=== PATIENT | male | born 1955 | race Caucasian/White ===

== ENCOUNTER 2018-02-15 05:31 | Day surgery (SDC) | payer OTHER ==
[~2018-02-15] VITALS: Ht 177.8 cm; Wt 86.6 kg
[~2018-02-15 05:31] MED LIST: ASPI-516 CHEW; ATOR40TA16 PO; BUPR150XL PO; CIAL10TA PO; LORA-392 PO; METO25TA3 PO
[2018-02-15] MEDS ORDERED: IOHEXOL 350 MG/ML 100 ML BTL (for Cath Lab) OTHER ONE (05:32)
[2018-02-15] MEDS ORDERED: IOHEXOL 350 MG/ML 50 ML BTL (for Cath Lab) OTHER ONE (05:32)
[2018-02-15] MEDS ORDERED: NS 1000P @30 MLS/HR (KVO) IV SCH (06:00)
[2018-02-15 06:30] VITALS: BP 154/87; PULSE 67; RESP 18; TEMP 98.6; O2SAT 97
[2018-02-15] MEDS ORDERED: ADVI200T17 PO (06:37)
[2018-02-15] MEDS ORDERED: METO25TA3 PO (06:37)
[2018-02-15] MEDS ORDERED: ASPI-183 PO (06:37)
[2018-02-15] MEDS ORDERED: NITR0.4S SL (06:37)
[2018-02-15] MEDS ORDERED: MULTTAB67 PO (06:37)
[2018-02-15] MEDS ORDERED: ISOS30TA3 PO (06:37)
[2018-02-15 06:48] LABS: AUTOMATED NEUTROPHIL # 5.5 TH/MM3 (1.8-7.7); BASOPHIL # 0.1 TH/MM3 (0-0.2); EOSINOPHIL # 0.6 TH/MM3 (0-0.4); EOSINOPHIL % 6.5 % (0.0-4.0); HEMATOCRIT 40.5 % (39.0-51.0); HEMOGLOBIN 14.3 GM/DL (13.0-17.0); LYMPH % 23.4 % (9.0-44.0); MEAN CELL VOLUME 88.1 FL (80.0-100.0); MEAN CORPUSCULAR HEMOGLOBIN 31.1 PG (27.0-34.0); MEAN CORPUSCULAR HGB CONC 35.3 % (32.0-36.0); MEAN PLATELET VOLUME 7.3 FL (7.0-11.0); MONOCYTE # 0.5 TH/MM3 (0-0.9); NEUT % 63.1 % (16.0-70.0); PLATELET COUNT 233 TH/MM3 (150-450); RED CELL DISTRIBUTION WIDTH 13.3 % (11.6-17.2); WHITE BLOOD COUNT 8.7 TH/MM3 (4.0-11.0)
[2018-02-15 07:01] LABS: PROTHROMBIN TIME - PATIENT 10.5 SEC (9.8-11.6)
[2018-02-15 07:06] LABS: CALCIUM 9.6 MG/DL (8.5-10.1); CREATININE 1.35 MG/DL (0.60-1.30)
[2018-02-15] MEDS ORDERED: MIDAZOLAM HCL 2 MG/2 ML VIAL ONE ×2 (07:10→07:49)
[2018-02-15] MEDS ORDERED: HEPARIN-NS/PF INJ 1,000 ML ONE (07:10)
[2018-02-15] MEDS ORDERED: HEPARIN SODIUM - IV 10,000 UNITS/10 ML VIAL ONE (07:10)
[2018-02-15] MEDS ORDERED: METOCLOPRAMIDE HCL 10 MG/2 ML VIAL IV PUSH PRN (08:45)
[2018-02-15] MEDS ORDERED: MISC INFORMATION XX ONE (08:45)
[2018-02-15] MEDS ORDERED: SODIUM CHLORIDE 0.9% FLUSH 10 ML FLUSH IV FLUSH PRN (08:45)
[2018-02-15] MEDS ORDERED: SODIUM CHLORIDE 0.9% FLUSH 10 ML FLUSH IV FLUSH SCH (09:00)
[2018-02-15] MEDS ORDERED: SODIUM CHLOR 0.9% 1000 ML INJ 1,000 ML IV SCH (09:00)
[2018-02-15] MEDS ORDERED: BACITRACIN OINT 0.9 GM PKT TOP ONE (09:00)
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
--- NOTE | 2018-02-15 09:11 | CATHPROC ---
[facility] HIS Report Study Information Study Number Admission Scheduled Start Study Start [id number] Feb 15 2018 5:31AM 02/15/2018 Feb 15 2018 6:53AM [place] Service Cardiac Catheterization Admit Source Facility Department Other [facility] - Remote Sensing Scientist Physician and Clinical Staff Initial Dominic Morelos Nut Picker Narendra Acuña,JACK Recorder Mary Lewis,DISTRIBUTION OPERATIONS SUPERVISOR TECH2 Scrub Elisa Lai ,RT(R) Procedures Performed Procedure Location (Site) Vessel Name Angiogram LV LV Ventricle Coronary Angiograms LCA Left Coronary Coronary Angiograms RCA Right Coronary Coronary Angiograms MORALEZ-LAD Left Coronary Coronary Angiograms SVG-OM 1 CIRC Coronary Angiograms SVG-OM 2 CIRC Coronary Angiograms Gft, RCA Dist Right Coronary Equipment Time Water Sponger Description Size Mfg Part Number Used/Scraped TRANSDUCER, TRUWAVE [id number] 06:54 RAINES VARELA * Used W/STOCKCOCK *[id number] [id number] *[id number] [id number] *[id number] *[id number] PIGTAIL ANG. 145 INFINITI 534-652S CATHETER *[id number] 06:54 [employer] BLANKET,WARM AIR CCL * Used *[id number] 06:54 [employer] PACK, CCL CUSTOM * Used *[id number] 06:54 SinglePlatform PACER PEN, SKIN DUAL W/ RULER * Used *[id number] 06:54 Kauli SHEATH, FR6.5 PRELUDE 11CM FR 6.5 038ACT Used *[id number] 06:54 [employer]uli WIRE, 3MMJ .035 180CM 180CM Used *[id number] 06:54 NAMIC MANIFOLD, 4 PORT * Used *[id number] 06:54 [employer] OMNIPAQUE, 350 MG, 150ML 150ML [id number] Used 07:51 [employer] OMNIPAQUE, 350 MG, 50ML 50ML [id number] Used History: Current Medications Medication Dosage/Unit Route Frequency Last Date/Time Taken Statins (any) ATIVAN CIALIS ASA Imdur LOPRESSOR NTG SL History: Allergies Allergy Reaction No Known Allergies History: Risk Factors Family History of Hypertension Dyslipidemia Previous MD Previous Heart Failure Premature CAD Yes Yes Yes No No Prior Valve Prior PCI Prior CABG Prior CABGDate Surgery No No Yes 03/09/2014 Cerebrovascular Peripheral Artery Chronic Lung On Dialysis Diabetes Disease Disease Disease No No No No No History: Symptoms/Diagnosis Selection Items Chest pain History: CV Disease Selection Items Known CAD History: Stress Tests Stress or Imaging Studies Performed Yes Standard Exercise Stress Test No Stress Echo No Stress Test SPECT Stress Test SPECT Result Stress Test SPECT Ischemia Risk/Extent Yes Positive Intermediate Stress Test CMR No Cardiac CTA Coronary Calcium Score No No History: Other Current Smoker No Labs Hgb (g/dl) Hct (%) WBC (l/cumm) Platelets (thousands) 11.60-17.00 35.00-51.00 4.00-11.00 150.00-450.00 14.3 40.5 8.7 233 Glucose (mg/dl) BUN (mg/dl) Creatinine (mg/dl) BUN:Creatinine (1:x) 74.00-106.00 7.00-18.00 0.50-1.30 10.00-20.00 97 17 1.3 13.1 Na (meq/l) K (meq/l) Cl (meq/l) CO2 (mmol/L) 136.00-145.00 3.50-5.10 98.00-107.00 21.00-32.00 142 3.9 106 25 INR (PTT:PT) 0.90-1.10 1 CPK-MB (ng/ML) 0.50-3.60 Not Drawn Medication Medication Total Dose (Bolus/Oral) Medication Total Dosage/Unit 1% XYLOCAINE 20 mL FENTANYL 50 mcg OXYGEN 2 l/min VERSED 4 mg Medications (Bolus/Oral) Medication Time Given Dosage/Unit Administered By Reason VERSED 02/15/2018 7:46:27 AM 2 mg Narendra Acuña 2 mg VERSED given in lab by Narendra Acuña RN in Left Antecubital via Peripheral IV. Ordered by Dominic Meng. FENTANYL 02/15/2018 7:47:40 AM 50 mcg Narendra Acuña 50 mcg FENTANYL given in lab by Narendra Acuña RN in Left Antecubital via Peripheral IV. Ordered by Dominic Magaña. 1% XYLOCAINE 02/15/2018 7:48:49 AM 20 mL Dominic Gilmore 20 mL 1% XYLOCAINE given in lab by Dominic Gilmore in Right Groin via Subcutaneous. Ordered by Dominic Gilmore. VERSED 02/15/2018 7:59:49 AM 2 mg Narendra Acuña 2 mg VERSED given in lab by Narendra Acuña RN in Left Antecubital via Peripheral IV. Ordered by Dominic Meng. OXYGEN 02/15/2018 8:03:34 AM 2 l/min Narendra Acuña 2 l/min OXYGEN given in lab by Narendra Acuña RN via Nasal. Ordered by Dominic Gilmore. Medication (Drip) Medication Time Given Dosage/Unit Concentration/Unit Diluent (ml) Solution IV Solutions 02/15/2018 7:14:05 AM 0 mL (IV) 500 NaCl .9 Patient arrived on IV Solutions in Left Antecubital via Peripheral IV. Pump/Drip Flow = 20 ml/hr usin g NaCl .9. Initial Case Assessment Cardiovascular HR Rhythm NIBP Chest Pain 66 sr 149/86 0 Circulatory - Right Pulses Dorsalis Pedis Femoral 2 2 Scale (0,1,2,3,4,d) Circulatory - Left Pulses Dorsalis Pedis Femoral 2 2 Scale (0,1,2,3,4,d) Neurological State Oriented to time-place- Alert Moves all extremities person Respiration - General Respiration Rate SpO2 (%) (B/min) 13 99 Chronological Log Time Study Chronological Log 7:08:42 Patient arrived via Bed. 7:08:43 Patient Name, D.O.B, / Armband Verified By R.N. 7:08:44 Consent signed by the physician and the patient and verified by the Remote Sensing Scientist staff. 7:08:45 Pre-op and post- op instructions given; patient acknowledges understanding of instructions. 7:08:45 Verbal Stimulation=2 Physical Stimulation=2 Airway=2 Respiration=2 TOTAL=8. (0=absent, 1=de [place] ited, 2=present) 7:09:18 Patient has been NPO for More than 6Hrs. 7:09:21 Skin Breakdown-none per patient 7:09:22 Edyta Prominences Protected Vitals capture started with the following parameters, Patient=Adult, Interval=5 min, Initial Pre ypndu=051 mmHg, 7:12:03 Deflation Rate=5 mmHg, Cuff placed on Left Arm 7:13:21 HR=95 bpm, WVAJ=706/86 mmhg, SpO2=97.0 %, Resp=10 B/min 7:14:04 A # 20 IV was noted in the Antecubital (left). Grade = patent 7:14:05 Patient arrived on IV Solutions in Left Antecubital via Peripheral IV. Pump/Drip Flow = 20 m l/hr using NaCl .9. 7:14:07 History and physical on the chart or being dictated. Assessment: Initial Case, HR=66 BPM, Rhythm=sr, HGSL=943/86 mmhg, Chest Pain=0 Right Pulses: Rigoberto Ped=2, Femoral=2 7:14:08 Left Pulses: Rigoberto Ped=2, Femoral=2 Neurological: State=Alert, Ox3, GARCIA Respiration: Resp=13 B/min, SpO2=99 % 7:17:48 HR=60 bpm, TEXD=672/84 mmhg, SpO2=96.0 %, Resp=7 B/min 7:18:57 Right groin prepped with 2% chlorhexidine, and draped after a 3 min. waiting time. 7:22:47 HR=63 bpm, FHDA=042/85 mmhg, SpO2=98.0 %, Resp=15 B/min 7:23:36 MD paged 7:25:20 MD responded 7:25:29 Pressure channel 1 zeroed. 7:27:02 Reference ECG taken 7:27:48 HR=62 bpm, PQII=153/78 mmhg, SpO2=98.0 %, Resp=16 B/min 7:32:49 HR=75 bpm, SCKK=077/77 mmhg, SpO2=98.0 %, Resp=11 B/min 7:37:44 HR=59 bpm, YMUR=492/83 mmhg, SpO2=96.0 %, Resp=18 B/min 7:41:55 MD arrived. 7:42:45 HR=64 bpm, WAXL=493/72 mmhg, SpO2=98 %, Resp=13 B/min 7:46:27 2 mg VERSED given in lab by Narendra Acuña, RN in Left Antecubital via Peripheral IV. Ordered by Dominic Gilmore. Time Out. Correct patient, correct procedure, correct physician, labs, allergies, and equipment verified with labeling associate 7:46:41 team present. Fire risk assesment completed (see hard stop sheet for coding). Time Out Concu rred by MD and individual staff in procedure. 7:47:40 50 mcg FENTANYL given in lab by Narendra Acuña, RN in Left Antecubital via Peripheral IV. Ord ered by Dominic Gilmore. 7:47:48 HR=66 bpm, ERXB=789/66 mmhg, SpO2=98.0 %, Resp=12 B/min 7:48:47 Case Start 7:48:49 20 mL 1% XYLOCAINE given in lab by Dominic Gilmore in Right Groin via Subcutaneous. Ordered by Dominic Gilmore. 7:50:33 Access site was Right Femoral Artery. 7:50:40 A SHEATH, FR6.5 PRELUDE 11CM FR 6.5 was advanced into the Fem Art (right) using the Percutan eous technique. A PIGTAIL ANG. 145 INFINITI CATHETER FR 6 was advanced over a wire. OMNIPAQUE, 350 MG, 50ML 50ML was used 7:50:53 for injections. Recorded Pressure: LV, HR=61, Condition=Condition 1 7:52:22 (Left Ventricle) LV 95/1/10 7:52:47 HR=68 bpm, ECBG=133/71 mmhg, SpO2=96.0 %, Resp=9 B/min 7:53:06 The LV was injected at 8 cc/sec for a total of 16. OMNIPAQUE, 350 MG, 50ML 50ML used. Recorded Pressure: LV, Ao, HR=62, Condition=Condition 1 7:53:59 (Left Ventricle) LV 118/-7/12, (Aorta) Ao 117/67/87 7:54:55 Catheter was removed A JL 4.0 INFINITI CATHETER FR 6 was advanced over a wire. OMNIPAQUE, 350 MG, 150ML 150ML was use d for 7:54:57 injections. 7:56:38 The LCA was injected and visualized at various angles. OMNIPAQUE, 350 MG, 150ML 150ML used. A JR 4.0 INFINITI CATHETER FR 6 was advanced over a wire. OMNIPAQUE, 350 MG, 150ML 150ML was use d for 7:57:09 injections. 7:57:44 HR=67 bpm, JAOE=121/76 mmhg, SpO2=96.0 %, Resp=7 B/min 7:59:19 The RCA was injected and visualized at various angles. OMNIPAQUE, 350 MG, 150ML 150ML used. 7:59:33 The SVG-OM 1 was injected and visualized at various angles. OMNIPAQUE, 350 MG, 150ML 150ML u sed. 7:59:49 2 mg VERSED given in lab by Narendra Acuña RN in Left Antecubital via Peripheral IV. Ordered by Dominic Gilmore. 8:01:27 The SVG-OM 2 was injected and visualized at various angles. OMNIPAQUE, 350 MG, 150ML 150ML u sed. 8:02:38 The Gft, RCA Dist was injected and visualized at various angles. OMNIPAQUE, 350 MG, 150ML 15 0ML used. 8:02:45 HR=67 bpm, SNRS=044/65 mmhg, SpO2=92.0 %, Resp=10 B/min 8:03:34 2 l/min OXYGEN given in lab by Narendra Acuña RN via Nasal. Ordered by Dominic Gilmore. 8:04:00 Catheter was removed A POLI INFINITI CATHETER FR 6 was advanced over a wire. OMNIPAQUE, 350 MG, 150ML 150ML was used f or 8:04:01 injections. 8:05:32 The MORALEZ-LAD was injected and visualized at various angles. OMNIPAQUE, 350 MG, 150ML 150ML u sed. 8:07:46 HR=62 bpm, BWBU=131/64 mmhg, JyW0=844.0 %, Resp=11 B/min 8:08:13 Catheter was removed 8:12:47 HR=60 bpm, GANF=916/66 mmhg, SpO2=99.0 %, Resp=9 B/min A JL 4.0 INFINITI CATHETER FR 6 was advanced over a wire. OMNIPAQUE, 350 MG, 150ML 150ML was use d for 8:16:32 injections. 8:17:44 HR=60 bpm, SYBN=712/68 mmhg, ZuY8=726.0 %, Resp=9 B/min 8:18:17 The LCA was injected and visualized at various angles. OMNIPAQUE, 350 MG, 150ML 150ML used. 8:19:11 Catheter was removed 8:20:28 Case End 8:22:49 HR=60 bpm, AKEL=200/65 mmhg, ZiK3=978.0 %, Resp=12 B/min 8:24:19 Sheath removed; pressure applied to access site. 8:27:46 HR=62 bpm, FEYA=228/67 mmhg, SpO2=99.0 %, Resp=12 B/min 8:32:45 HR=63 bpm, UDKU=936/72 mmhg, CoT4=130.0 %, Resp=8 B/min 8:37:46 HR=66 bpm, RMBG=954/81 mmhg, SpO2=99.0 %, Resp=18 B/min 8:42:51 HR=60 bpm, KYML=746/69 mmhg, AhD6=603.0 %, Resp=10 B/min 8:47:46 HR=64 bpm, OFCH=856/73 mmhg, SpO2=96.0 %, Resp=13 B/min 8:52:49 HR=60 bpm, QDYY=529/71 mmhg, SpO2=96.0 %, Resp=11 B/min 8:57:48 HR=64 bpm, PXRG=670/72 mmhg, SpO2=98.0 %, Resp=12 B/min 9:02:50 HR=59 bpm, KVMW=521/66 mmhg, SpO2=98.0 %, Resp=12 B/min 9:06:47 Hemostasis obtained. Sterile dressing applied to site 9:07:56 Patient moved to bed 9:08:16 Patient transported to DOCU. 9:08:48 No case complications noted. 9:08:49 Cine recording checked. 9:08:50 Bedside Report will be given. End Study - Contrast Media Used In Study Contrast Total Opened (mL) Total Used (mL) Total Wasted (mL) Omnipaque 110 110 0 End Study - Maximum Contrast Load Max Contrast Load (mL) 333.0 End Study - Radiation Exposure Fluoro Time (minutes) 5.7 End Study - Sheaths Sheaths Pulled By Sheath Hold Time (min) Elisa Lai 20 End Study - Patient Disposition Complications Transferred To Interventional Outcome No Telemetry Bed No attempt made
--- NOTE | 2018-02-15 16:09 | EKG ---
Date Performed: 02/15/2018 Time Performed: 06:33:00 PTAGE: 62 years EKG: Sinus bradycardia with 1st degree A-V block. Septal T wave changes are nonspecific Since th e previous tracing, no significant change noted Abnormal ECG PREVIOUS TRACING : 03/10/2014 05.37 DOCTOR: Caryn Barrera Interpretating Date/Time 02/15/2018 16:08:55
== END 2018-02-15 15:37 | disposition home or self-care (01) ==
LOC: HDIC 05:31 → HDOC 05:31
PROVIDERS: ATTEND Internal Medicine Cardiovascular Disease
DX: I25.810 Atherosclerosis of coronary artery bypass graft(s) without angina pectoris (principal); I25.119 Atherosclerotic heart disease of native coronary artery with unspecified angina pectoris; I10 Essential (primary) hypertension; E78.5 Hyperlipidemia, unspecified; Z95.1 Presence of aortocoronary bypass graft
CPT/HCPCS: 80048; 85025; 85610; 85730; 93005; 93459; 99152; 99153; C1769; C1893; J1644; J2250; J3010; J7030; Q9967

== ENCOUNTER 2018-02-18 22:47 | Inpatient (IN) | payer OTHER ==
[~2018-02-18] VITALS: Ht 177.8 cm; Wt 87.7 kg
[~2018-02-18 22:47] MED LIST changes: +ADVI200T17 PO; +ASPI-183 PO; -ASPI-516 CHEW; -BUPR150XL PO; +ISOS30TA3 PO; +MULTTAB67 PO; +NITR0.4S SL
[2018-02-18 22:54] VITALS: BP 149/79; PULSE 77; RESP 18; TEMP 97.9; O2SAT 100
[2018-02-18] MEDS ORDERED: CLOP75TA PO (23:06)
[2018-02-18 23:07] VITALS: PULSE 78; RESP 18; O2SAT 100
[2018-02-18] MEDS ORDERED: SODIUM CHLORIDE 0.9% FLUSH 10 ML FLUSH IVF PRN (23:15)
[2018-02-18 23:22] VITALS: BP_SYST 129; BP_SYST 144; BP_DIAS 71; BP_DIAS 79; PULSE 78
[2018-02-18] MEDS ORDERED: FAMOTIDINE 20 MG/2 ML VIAL IV PUSH SCH (23:30)
[2018-02-18] MEDS ORDERED: PANTOPRAZOLE SODIUM 40 MG VIAL IV PUSH ONE (23:30)
[2018-02-18 23:44] LABS: AUTOMATED NEUTROPHIL # 4.6 TH/MM3 (1.8-7.7); BASOPHIL # 0.1 TH/MM3 (0-0.2); BASOPHIL % 1.2 % (0.0-2.0); EOSINOPHIL # 0.3 TH/MM3 (0-0.4); EOSINOPHIL % 4.5 % (0.0-4.0); HEMATOCRIT 40.6 % (39.0-51.0); HEMOGLOBIN 14.3 GM/DL (13.0-17.0); LYMPH % 26.6 % (9.0-44.0); MEAN CELL VOLUME 89.4 FL (80.0-100.0); MEAN CORPUSCULAR HEMOGLOBIN 31.4 PG (27.0-34.0); MEAN CORPUSCULAR HGB CONC 35.1 % (32.0-36.0); MEAN PLATELET VOLUME 7.7 FL (7.0-11.0); MONO % 7.6 % (0.0-8.0); MONOCYTE # 0.6 TH/MM3 (0-0.9); NEUT % 60.1 % (16.0-70.0); PLATELET COUNT 205 TH/MM3 (150-450); RED BLOOD COUNT 4.54 MIL/MM3 (4.50-5.90); RED CELL DISTRIBUTION WIDTH 13.4 % (11.6-17.2); WHITE BLOOD COUNT 7.7 TH/MM3 (4.0-11.0)
[2018-02-18 23:53] LABS: PROTHROMBIN TIME - PATIENT 10.1 SEC (9.8-11.6)
[2018-02-19] VITALS (10 sets, daily range): BP systolic 109–155; BP diastolic 66–77; PULSE 59–72; RESP 16–20; TEMP 96.9–98.3; O2SAT 96–100
--- NOTE | 2018-02-19 00:09 | RADRPT ---
EXAM DATE: 02/18/2018 11:54 PM EDT AGE/SEX: 62 years / Male INDICATIONS: Chest and upper abdominal pain. CLINICAL DATA: This is the patient's initial encounter. Patient reports that signs and symptoms have been present for 1 day and indicates a pain score of 8/10. MEDICAL/SURGICAL HISTORY: Hypertension. CABG. COMPARISON: No prior exams available for comparison. FINDINGS: PA and lateral views of the chest demonstrate the lungs to be symmetrically aerated without evidence of mass, infiltrate or effusion. The cardiomediastinal contours are unremarkable except tortuous aort a. Osseous structures are intact. CONCLUSION: No active disease. Postoperative CABG. Electronically signed by: Jose Cook MD 02/19/2018 12:08 AM EDT
[2018-02-19] MEDS ORDERED: NITROGLYCERIN 2% OINT 1 GM PACKET TOPICAL ONE (00:15)
[2018-02-19] MEDS ORDERED: ASPIRIN 81 MG CHEW TAB CHEW ONE (00:15)
--- NOTE | 2018-02-19 00:20 | PD ---
HPI . Chest pain substernal Chief Complaint: Cardiac Complaint Time Seen by Provider: 22:57 Travel History International Travel<30 days: Yes Contact w/Intl Traveler<30days: Yes Name of Country Traveled to: [place] january 2018 Traveled to known affect area: No History of Present Illness HPI Patient is a 62-year-old male 2 days ago had a diagnostic catheterization by Dr. Dominic Gilmore. Patient report is read by this MD and I see that he has a severe stenosis in his LAD and circumflex and they are planning on doing an angioplasty with stenting of his grafts. 4 years ago he had a CABG triple- vessel disease grafts. Patient reports that 2 days ago the night prior to his catheterization he had substernal chest pain that felt like it was acid stomach took some Tums but it did not much change it went away on its own had his cath 2 days ago then tonight he had substernal chest pain he said it felt like a burning but felt higher up in his normal acid stomach he took some Pepto-Bismol prior to coming to the ER and by the time he is here he says it is resolving. Patient's initial EKG normal sinus rhythm at a rate of 71 however he has a flipped T-wave in V3 that was not there 2 days ago on his EKG prior to the catheterization. Catheterization was only diagnostic there was no angioplasty or stenting so his troponin is pending but it should be normal his pain is resolving we give him Pepcid and Protonix but he reports even prior to her treatment it was resolving on its own. Denies nausea vomiting denies diaphoresis denies shortness of breath denies any GI involvement. He is scheduled to see Dr. Gilmore this coming week the he is to have a cath with stenting [facility] Past Medical History Cancer: Yes (squamous cell skin cancer) Cardiac Catheterization: Yes Cardiovascular Problems: Yes (HTN, CAD, ANGINA, CABGx4) High Cholesterol: Yes Chest Pain: No Coronary Artery Disease: Yes Diabetes: No Endocrine: No Gastrointestinal Disorders: No Glaucoma: No Genitourinary: No Hepatitis: No Hypertension: Yes Immune Disorder: No Musculoskeletal: No Neurologic: No Psychiatric: No Respiratory: Yes (SOB) Integumentary: No Thyroid Disease: No Past Surgical History Coronary Artery Bypass Graft: Yes Thoracic Surgery: Yes (CABG) Other Surgery: Yes (wisdom teeth) Social History Alcohol Use: Yes (couple beers per day) Tobacco Use: No (never) Substance Use: No Allergies-Medications (Allergen,Severity, Reaction): Coded Allergies: No Known Allergies (Unverified Allergy, Unknown, 02/18/18) Reported Meds & Prescriptions Reported Meds & Active Scripts Active Cialis (Tadalafil) 10 Mg Tab 10 Mg PO DAILY PRN Do not exceed 1 dose/day. Ativan (Lorazepam) 0.5 Mg Tab 0.5 Mg PO Q6H PRN Atorvastatin (Atorvastatin Calcium) 40 Mg Tab 40 Mg PO HS Reported Clopidogrel (Clopidogrel Bisulfate) 75 Mg Tab Unknown Dose PO DAILY Nitrostat SL (Nitroglycerin) 0.4 Mg Subl 0.4 Mg SL DIRECTED PRN 1 tablet under the tongue as needed for chest pain. Repeat every 5 minutes for a total of 3 DOSES or call 911 if NO relief. Metoprolol Tartrate 25 Mg Tab 25 Mg PO BID Isosorbide Mononitrate ER (Isosorbide Mononitrate) 30 Mg Amy 30 Mg PO DAILY Advil Pm (Ibuprofen-Diphenhydramine) 200-38 Mg Tab 1 Tab PO HS PRN Multiple Vitamin 1 Tab 1 Tab PO DAILY Aspirin 325 Mg Tab 325 Mg PO DAILY Review of Systems Except as stated in HPI: all other systems reviewed are Neg Cardiovascular: Positive: Chest Pain or Discomfort, No: Irregular Rhythm, Tachycardia Respiratory: No: Shortness of Breath Gastrointestinal: No: Vomiting, Abdominal Pain Physical Exam Narrative GENERAL: Nontoxic nondiaphoretic no signs of acute coronary syndrome no nausea no palate appears normal oriented 3 SKIN: Warm and dry. HEAD: Atraumatic. Normocephalic. EYES: Pupils equal and round. No scleral icterus. No injection or drainage. ENT: No nasal bleeding or discharge. Mucous membranes pink and moist. NECK: Trachea midline. No JVD. CARDIOVASCULAR: Regular rate and rhythm. RESPIRATORY: No accessory muscle use. Clear to auscultation. Breath sounds equal bilaterally. GASTROINTESTINAL: Abdomen soft, non-tender, nondistended. Hepatic and splenic margins not palpable. MUSCULOSKELETAL: Extremities without clubbing, cyanosis, or edema. No obvious deformities. NEUROLOGICAL: Awake and alert. No obvious cranial nerve deficits. Motor grossly within normal limits. Five out of 5 muscle strength in the arms and legs. Normal speech. PSYCHIATRIC: Appropriate mood and affect; insight and judgment normal. Data Data Last Documented VS Vital Signs Date Time Temp Pulse Resp B/P (MAP) Pulse Ox O2 Delivery O2 Flow Rate FiO2 02/18/18 23:22 78 144/79 (100) 129/71 (90) 02/18/18 23:07 18 100 Room Air 02/18/18 22:54 97.9 Orders Orders Electrocardiogram (02/18/18 23:02) Ckmb (Isoenzyme) Profile (02/18/18 23:02) Complete Blood Count With Diff (02/18/18 23:02) Comprehensive Metabolic Panel (02/18/18 23:02) Magnesium (Mg) (02/18/18 23:02) Prothrombin Time / Inr (Pt) (02/18/18:02) Act Partial Throm Time (Ptt) (02/18/18 23:02) Troponin I (02/18/18 23:02) Ecg Monitoring (02/18/18 23:02) Bilateral Bp Monitoring (02/18/18 23:02) Iv Access Insert/Monitor (02/18/18 23:02) Oximetry (02/18/18 23:02) Oxygen Administration (02/18/18 23:02) Sodium Chloride 0.9% Flush (Ns Flush) (02/18/18 23:15) Chest, Pa & Lat (02/18/18 23:02) Famotidine Inj (Pepcid Inj) (02/18/18 23:30) Pantoprazole Inj (Protonix Inj) (02/18/18 23:30) Aspirin Chew (Aspirin Chew) (02/19/18 00:15) Nitroglycerin 2% Oint (Nitroglycerin 2% (02/19/18 00:15) CKMB (02/18/18 23:27) CKMB% (02/18/18 23:27) Admit Order (Ed Use Only) (02/19/18 01:35) Labs Laboratory Tests Test 02/18/18 23:27 White Blood Count 7.7 TH/MM3 Red Blood Count 4.54 MIL/MM3 Hemoglobin 14.3 GM/DL Hematocrit 40.6 % Mean Corpuscular Volume 89.4 FL Mean Corpuscular Hemoglobin 31.4 PG Mean Corpuscular Hemoglobin Concent 35.1 % Red Cell Distribution Width 13.4 % Platelet Count 205 TH/MM3 Mean Platelet Volume 7.7 FL Neutrophils (%) (Auto) 60.1 % Lymphocytes (%) (Auto) 26.6 % Monocytes (%) (Auto) 7.6 % Eosinophils (%) (Auto) 4.5 % Basophils (%) (Auto) 1.2 % Neutrophils # (Auto) 4.6 TH/MM3 Lymphocytes # (Auto) 2.0 TH/MM3 Monocytes # (Auto) 0.6 TH/MM3 Eosinophils # (Auto) 0.3 TH/MM3 Basophils # (Auto) 0.1 TH/MM3 CBC Comment DIFF FINAL Differential Comment Prothrombin Time 10.1 SEC Prothromb Time International Ratio 1.0 RATIO Activated Partial Thromboplast Time 22.2 SEC Blood Urea Nitrogen 15 MG/DL Creatinine 1.42 MG/DL Random Glucose 104 MG/DL Total Protein 7.7 GM/DL Albumin 3.6 GM/DL Calcium Level 8.2 MG/DL Magnesium Level 2.0 MG/DL Alkaline Phosphatase 91 U/L Aspartate Amino Transf (AST/SGOT) 103 U/L Alanine Aminotransferase (ALT/SGPT) 60 U/L Total Bilirubin 0.7 MG/DL Sodium Level 141 MEQ/L Potassium Level 4.6 MEQ/L Chloride Level 105 MEQ/L Carbon Dioxide Level 26.9 MEQ/L Anion Gap 9 MEQ/L Estimat Glomerular Filtration Rate 50 ML/MIN Total Creatine Kinase 158 U/L Creatine Kinase MB 0.9 NG/ML Troponin I LESS THAN 0.02 NG/ML MDM Medical Decision Making Medical Screen Exam Complete: Yes Emergency Medical Condition: Yes Medical Record Reviewed: Yes Differential Diagnosis Patient has substernal chest pain it could be gastritis it could be esophagitis it could be pancreatitis it could be pneumonia pleurisy could be cardiac ischemia other Narrative Course Patient is an EKG normal sinus rhythm at a rate of 73 that were normal 2 days ago. He is given Protonix and Pepcid to alleviate any gastritis or esophagitis he is to be admitted for telemetry to be evaluated by cardiology and possible earlier stenting I reviewed his cath report diagnostic cath done [address] Gilmore there was excessive stenosis of his grafts and the LAD very concerning with flipped T waves a feel is indicated to keep radiation monitor give him aspirin given Nitropaste at this time I am not giving any heparin but he will be reevaluated by cardiology in the a.m. Diagnosis Primary Impression: Substernal chest pain Additional Impression: Substernal discomfort Admitting Information Admitting Physician Requests: Observation Solo Rock MD Feb 19, 2018 00:20
[2018-02-19 00:42] LABS: ALBUMIN 3.6 GM/DL (3.4-5.0); ALKALINE PHOSPHATASE 91 U/L (45-117); ALT (GPT) 60 U/L (12-78); AST (GOT) 103 U/L (15-37); BICARBONATE 26.9 MEQ/L (21.0-32.0); BLOOD UREA NITROGEN 15 MG/DL (7-18); CALCIUM 8.2 MG/DL (8.5-10.1); CHLORIDE 105 MEQ/L (98-107); CREATININE 1.42 MG/DL (0.60-1.30); GLOMERULAR FILTRATION RATE 50 ML/MIN (>89); GLUCOSE,RANDOM 104 MG/DL (74-106); SODIUM (NA) 141 MEQ/L (136-145); TOTAL BILIRUBIN ADULT 0.7 MG/DL (0.2-1.0); TOTAL PROTEIN 7.7 GM/DL (6.4-8.2); TROPONIN I LESS THAN 0.02 NG/ML (0.02-0.05)
--- NOTE | 2018-02-19 01:34 | HHI.HP ---
[facility] Primary Care Physician Kendal Carr MD Admission Diagnosis Diagnoses: International Travel<30 Days: Yes Contact w/Intl Traveler<30days: Yes Name of Country Traveled to: [place] january 2018 Known Affected Area: No History of Present Illness 62-year-old male with history of CABG x4 in 2013, HTN, and hyperlipidemia presented to the ED with substernal chest pain. Patient states that he ate a stuffed pepper around 6 PM. He states that he was sitting on the sofa when he started to experience substernal chest pain around 10 PM. He rates the pain as 10/10 with no radiation to his left jaw or left arm. He states that the pain lasted for 1 hour. He states that the pain subsided when he arrived in the ED before receiving medications. He currently has no active chest pain. He was unsure if this was related to his acid reflux or similar to his angina in the past. He called his son to take him to the ED. He denies palpitations, diaphoresis, nausea/ vomiting, shortness of breath, abdominal pain, and fevers. Patient states that 2 days ago he also started having substernal chest pain that woke him up. He states that last for several hours. He initially thought it was related to acid reflux and he took Pepto-Bismol without relief. He also had one episode of nonbloody, nonbilious vomiting. Patient had a diagnostic cardiac cath 2 days ago by his radiology assistant, Dr. Gilmore. Patient was found to have left main coronary artery disease, with 50% stenosis throughout and distally 99% stenosis. Patient states that he was scheduled for angioplasty and stents on the of this month. Patient states that he was taking a daily aspirin. However, he was recently switched to Plavix. He states that he picked up his Plavix prescription today but has not yet started the medication. Patient also states that he has chronic left shoulder pain. He states that he has been taking Advil PM about 4 tablets/day, unknown dose, for the past 6 months. Upon review of systems, patient states that he has been experiencing black tarry stools. He denies any weight loss and fatigue. Patient states that he has never had a endoscopy/colonoscopy. Review of Systems Constitutional: DENIES: Fever, Weight loss, Dizziness, Change in appetite Eyes: DENIES: Diplopia Ears, nose, mouth, throat: DENIES: Throat pain, Running Nose Respiratory: DENIES: Cough, Shortness of breath Cardiovascular: DENIES: Chest pain, Palpitations, Lower Extremity Edema Gastrointestinal: COMPLAINS OF: Black stools, DENIES: Abdominal pain, Diarrhea , Nausea, Vomiting Genitourinary: DENIES: Dysuria Musculoskeletal: DENIES: Muscle aches Integumentary: DENIES: Rash Neurologic: DENIES: Headache Past Family Social History Past Medical History Hyperlipidemia History of depression Anxiety Coronary artery disease with CABG in 2013 Hypertension Squamous cell carcinoma in 2008 Past Surgical History CABG x4 in 2013 Allergies: Coded Allergies: No Known Allergies (Unverified Allergy, Unknown, 02/18/18) Family History Mom with MD in 73 Dad, alive, 90, HTN, DM Siblings: HTN, DM, CAD Social History Lives with son 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 Cool and dry. HEAD: Atraumatic. Normocephalic. No temporal or scalp tenderness. EYES: Pupils equal round and reactive. Extraocular motions intact. No scleral icterus. No injection or drainage. ENT: Nose without bleeding, purulent drainage or septal hematoma. Throat without erythema, tonsillar hypertrophy or exudate. Uvula midline. Airway patent. NECK: Trachea midline. No JVD or lymphadenopathy. Supple, nontender, no meningeal signs. CARDIOVASCULAR: Regular rate and rhythm without murmurs, gallops, or rubs. RESPIRATORY: Clear to auscultation. Breath sounds equal bilaterally. No wheezes , rales, or rhonchi. GASTROINTESTINAL: Abdomen soft, non-tender, nondistended. No hepato-splenomegaly , or palpable masses. No guarding. MUSCULOSKELETAL: Extremities without clubbing, cyanosis, or edema. No joint tenderness, effusion, or edema noted. No calf tenderness. Negative Homans sign bilaterally. NEUROLOGICAL: Awake and alert. Oriented 3 Laboratory Laboratory Tests Test 02/18/18 23:27 White Blood Count 7.7 Red Blood Count 4.54 Hemoglobin 14.3 Hematocrit 40.6 Mean Corpuscular Volume 89.4 Mean Corpuscular Hemoglobin 31.4 Mean Corpuscular Hemoglobin Concent 35.1 Red Cell Distribution Width 13.4 Platelet Count 205 Mean Platelet Volume 7.7 Neutrophils (%) (Auto) 60.1 Lymphocytes (%) (Auto) 26.6 Monocytes (%) (Auto) 7.6 Eosinophils (%) (Auto) 4.5 Basophils (%) (Auto) 1.2 Neutrophils # (Auto) 4.6 Lymphocytes # (Auto) 2.0 Monocytes # (Auto) 0.6 Eosinophils # (Auto) 0.3 Basophils # (Auto) 0.1 CBC Comment DIFF FINAL Differential Comment Prothrombin Time 10.1 Prothromb Time International Ratio 1.0 Activated Partial Thromboplast Time 22.2 Blood Urea Nitrogen 15 Creatinine 1.42 Random Glucose 104 Total Protein 7.7 Albumin 3.6 Calcium Level 8.2 Magnesium Level 2.0 Alkaline Phosphatase 91 Aspartate Amino Transf (AST/SGOT) 103 Alanine Aminotransferase (ALT/SGPT) 60 Total Bilirubin 0.7 Sodium Level 141 Potassium Level 4.6 Chloride Level 105 Carbon Dioxide Level 26.9 Anion Gap 9 Estimat Glomerular Filtration Rate 50 Total Creatine Kinase 158 Creatine Kinase MB 0.9 Troponin I LESS THAN 0.02 Result Diagram: 02/18/18232602/18/182326 Septic Shock Reassessment Septic shock perfusion: reassessment completed Caprini VTE Risk Assessment Caprini VTE Risk Assessment: Mod/High Risk (score >= 2) Caprini Risk Assessment Model Point Value = 1 Point Value = 2 Point Value = 3 Point Value = 5 Age 41-60 Minor surgery BMI > 25 kg/m2 Swollen legs Varicose veins or History of unexplained or recurrent spontaneous Oral contraceptives or hormone replacement Sepsis (< 1 month) Serious lung disease, including pneumonia (< 1 month) Abnormal pulmonary function Acute myocardial infarction Congestive heart failure (< 1 month) History of inflammatory bowel disease Medical patient at bed rest Age 61-74 Arthroscopic surgery Major open surgery (> 45 min) Laparoscopic surgery (> 45 min) Malignancy Confined to bed (> 72 hours) Immobilizing plaster cast Central venous access Age >= 75 History of VTE Family history of VTE Factor V Leiden Prothrombin [id number] Lupus anticoagulant Anticardiolipin antibodies Elevated serum homocysteine Heparin-induced thrombocytopenia Other congenital or acquired thrombophilia Stroke (< 1 month) Elective arthroplasty Hip, pelvis, or leg fracture Acute spinal cord injury (< 1 month) Prophylaxis Regimen Total Risk Factor Score Risk Level Prophylaxis Regimen 0-1 Low Early ambulation 2 Moderate Order ONE of the following: *Sequential Compression Device (SCD) *Heparin 5000 units SQ BID 3-4 Higher Order ONE of the following medications: *Heparin 5000 units SQ TID *Enoxaparin/Lovenox 40 mg SQ daily (WT < 150 kg, CrCl > 30 mL/min) *Enoxaparin/Lovenox 30 mg SQ daily (WT < 150 kg, CrCl > 10-29 mL/min) *Enoxaparin/Lovenox 30 mg SQ BID (WT < 150 kg, CrCl > 30 mL/min) AND/OR *Sequential Compression Device (SCD) 5 or more Highest Order ONE of the following medications: *Heparin 5000 units SQ TID (Preferred with Epidurals) *Enoxaparin/Lovenox 40 mg SQ daily (WT < 150 kg, CrCl > 30 mL/min) *Enoxaparin/Lovenox 30 mg SQ daily (WT < 150 kg, CrCl > 10-29 mL/min) *Enoxaparin/Lovenox 30 mg SQ BID (WT < 150 kg, CrCl > 30 mL/min) AND *Sequential Compression Device (SCD) Assessment and Plan Assessment and Plan 62-year-old male with history of CABG x4 in 2013, HTN, and hyperlipidemia presented to the ED with substernal chest pain. Code Status Full code Discussed Condition With Dr. Santiago and Dr. Rock Problem List: (1) Substernal chest pain ICD Codes: R07.2 - Precordial pain Status: Acute Plan: Patient presenting with acute substernal chest pain. History of CABG 4. Diagnostic cath performed [address] Gilmore. Left main distally occluded 99%. Patient was scheduled to have angioplasty with stents on of this month. s/p patient received aspirin and nitropaste in the ED s/p patient also received Protonix and Pepcid to alleviate any gastritis or esophagitis Troponin less than 0.02, EKG normal sinus rhythm, inverted T waves in lead V3 compared to previous EKG on 02-15-18 Continue to trend troponin and EKG 2 every 6 hours Continuous cardiac telemetry Continue home Imdur and Plavix Continue Nitoglycerin SL as needed for Chest pain N.p.o., maintenance fluids Cardiology consulted, appreciate recommendations (2) Coronary artery disease ICD Codes: I25.10 - Coronary artery disease Status: Acute Plan: Continue Plavix 75mg PO daily, Imdur 30mg PO daily (3) Heme positive stool ICD Codes: R19.5 - Other fecal abnormalities Plan: Patient complaining of black tarry stools and has a history of chronic NSAID use. Hemoccult positive, performed in the ED by Dr. Scherer H& H chaya, 14.3/40.6, continue to monitor Continue Protonix 40 mg IV twice daily GI consulted for suspected upper GI bleed, appreciate recommendations (4) Hyperlipidemia ICD Codes: E78.5 - Hyperlipidemia Status: Acute Plan: Continue atorvastatin 40 mg p.o. at bedtime (5) Hypertension ICD Codes: I10 - Hypertension Status: Acute Plan: Continue metoprolol 25 mg p.o. twice daily (6) Elevated serum creatinine ICD Codes: R79.89 - Other specified abnormal findings of blood chemistry Plan: Creatinine of 1.42 on admission. Patient with history of recent cath procedure. Baseline creatinine around 1.3. Continue to monitor. (7) Nutrition, metabolism, and development symptoms ICD Codes: R63.8 - Other symptoms and signs concerning food and fluid intake Plan: Diet: N.p.o. for possible cardiac procedure Fluids: Normal saline at maintenance rate 125mls/hr Vitals every 4h, monitor I's and O's DVT ppx: SCDs Case Management consulted Ashleigh Scherer MD R1 Feb 19, 2018 01:34
[2018-02-19] MEDS ORDERED: ONDANSETRON HCL 4 MG/2 ML VIAL IVP PRN (02:15)
[2018-02-19] MEDS ORDERED: SODIUM CHLORIDE 0.9% FLUSH 10 ML FLUSH IV FLUSH PRN (02:15)
[2018-02-19] MEDS ORDERED: NALOXONE HCL 0.4 MG/ML AMP IV PUSH PRN (02:15)
[2018-02-19] MEDS ORDERED: NITROGLYCERIN 0.4 MG SL 25 TABS/BTL SL PRN (02:30)
[2018-02-19] MEDS: SODIUM CHLOR 0.9% 1000 ML INJ 1,000 ML IV SCH ×3 (03:48→19:10)
[2018-02-19] MEDS: CLOPIDOGREL 75 MG TAB PO SCH (08:26)
[2018-02-19] MEDS: METOPROLOL TARTRATE 25 MG TAB PO SCH ×2 (08:26→20:20)
[2018-02-19] MEDS: ISOSORBIDE MONONITRATE 30 MG CR TAB (IMDUR) PO SCH (08:26)
[2018-02-19] MEDS: PANTOPRAZOLE SODIUM 40 MG VIAL IV PUSH SCH ×2 (08:27→20:21)
[2018-02-19] MEDS: SODIUM CHLORIDE 0.9% FLUSH 10 ML FLUSH IV FLUSH SCH ×2 (08:27→20:24)
--- NOTE | 2018-02-19 09:38 | HHI.FPPN ---
Subjective Remarks Patient doing "much better" this morning. He denies chest pain, nausea, vomiting, fever, chills, shortness of breath. (Anibal Case MD R3) Objective Vitals Vital Signs Date Time Temp Pulse Resp B/P (MAP) Pulse Ox O2 Delivery O2 Flow Rate FiO2 02/19/18 08:00 97.7 65 20 132/77 (95) 98 02/19/18 07:31 65 02/19/18 05:01 65 02/19/18 03:40 97.9 67 16 124/76 (92) 96 02/19/18 03:35 02/19/18 02:02 71 18 132/77 (95) 100 Room Air 02/19/18 01:00 72 18 119/66 (83) 99 Room Air 02/18/18 23:22 78 144/79 (100) 129/71 (90) 02/18/18 23:07 78 18 100 Room Air 02/18/18 22:54 97.9 77 18 149/79 (102) 100 (Anibal Case MD R3) Result Diagram: 02/18/18232602/18/182326 Objective Remarks GENERAL: Pleasant, well-appearing, in no acute distress SKIN: No rashes, ecchymoses or lesions. Cool and dry. HEAD: Atraumatic. Normocephalic. EYES: Pupils equal round and reactive. Extraocular motions intact. No scleral icterus. No injection or drainage. ENT: Nose without bleeding, purulent drainage or septal hematoma. NECK: Trachea midline. CARDIOVASCULAR: Regular rate and rhythm without murmurs, gallops, or rubs. RESPIRATORY: Clear to auscultation. Breath sounds equal bilaterally. No wheezes , rales, or rhonchi. GASTROINTESTINAL: Abdomen soft, non-tender, nondistended. No guarding. MUSCULOSKELETAL: Extremities without clubbing, cyanosis, or edema. No joint tenderness, effusion, or edema noted. NEUROLOGICAL: Awake and alert. Oriented 3 (Anibal Case MD R3) A/P Assessment and Plan 62-year-old male with history of CABG x4 in 2014, HTN, and hyperlipidemia presented to the ED with substernal chest pain. Found to be Hemoccult positive. Recently underwent catheterization which shows significant stenosis in the distal LAD and other coronaries. We will consult cardiology and gastroenterology for recommendations per Discharge Planning Pending specialist recommendations (Anibal Case MD R3) Attending Attestation Patient interviewed and examined with Dr Case present EMR reviewed Detailed discussion with Jasper Case about patients management was held Agree with above documentation SeeOrders (Rah Rose MD) Problem List: (1) Substernal chest pain ICD Codes: R07.2 - Precordial pain Status: Acute Plan: Patient presenting with acute substernal chest pain. History of CABG 4. Diagnostic cath performed [address] Gilmore. Left main distally occluded 99%. Patient was scheduled to have angioplasty with stents on of this month. Patient also with Hemoccult positive stool and possibility of gastric ulcer based on history. Cardiology consulted Continue to trend troponin (negative 2) at 11:30 AM Gastroenterology consulted as below. (2) Coronary artery disease ICD Codes: I25.10 - Coronary artery disease Status: Acute Plan: Continue Plavix 75mg PO daily, Imdur 30mg PO daily (3) Heme positive stool ICD Codes: R19.5 - Other fecal abnormalities Plan: Patient complaining of black tarry stools and has a history of chronic NSAID use. Hemoccult positive, performed in the ED by Dr. Landers& Mele larkin, 14.3/40.6, continue to monitor Continue Protonix 40 mg IV twice daily GI consulted for suspected upper GI bleed, appreciate recommendations (4) Hyperlipidemia ICD Codes: E78.5 - Hyperlipidemia Status: Acute Plan: Continue atorvastatin 40 mg p.o. at bedtime (5) Hypertension ICD Codes: I10 - Hypertension Status: Acute Plan: Continue metoprolol 25 mg p.o. twice daily (6) Elevated serum creatinine ICD Codes: R79.89 - Other specified abnormal findings of blood chemistry Status: Resolved Plan: Creatinine of 1.42 on admission. Patient with history of recent cath procedure. Baseline creatinine around 1.3. Continue to monitor. (7) Nutrition, metabolism, and development symptoms ICD Codes: R63.8 - Other symptoms and signs concerning food and fluid intake Plan: Diet: N.p.o. for possible procedure Fluids: Normal saline at maintenance rate 125mls/hr Vitals every 4h, monitor I's and O's DVT ppx: SCDs Case Management consulted (Anibal Case MD R3) Anibal Case MD R3 Feb 19, 2018 09:38 Rah Rose MD Feb 21, 2018 08:48
[2018-02-19] MEDS ORDERED: PEG (High)/E-LYTE SOLN 4000 ML BTL PO ONE (10:30)
--- NOTE | 2018-02-19 10:47 | PD.CONS ---
HPI History of Present Illness This is a 62 year old male who was admitted to the hospital on 02/19/2018 with epigastric pain and dark stools. Onset of symptoms was approximately 4 days ago and has seemed to wax and wane. Patient notes aggregating factors of spicy stuffed peppers in the past 24 hours and started experiencing some substernal chest pain. Patient initially thought he had some acid reflux and has been taken some Pepto-Bismol with relief. Currently patient is denying any abdominal pain but does note some epigastric tenderness, Hemoccult was positive on admission, and current hemoglobin is 14.3. Other labs noted AST 103 ALT 60 which could be related to diet or fatty liver disease versus alcoholic hepatocellular disease. Patient does note daily alcohol consumption of 2-4 beers. Currently patient does note some occasional nausea but no vomiting, no diarrhea or constipation. Patient does note he has chronic left shoulder pain and takes a lot of Advil up to 4 tablets per day for the last 6 months. Patient denies any history of EGD or colonoscopy but does note positive family history with cousin with colon cancer and father had polyps. Patient has also been on Plavix and a daily aspirin at some point. Patient had a cardiac cath [address] Gilmore and was found to have coronary artery disease and has been scheduled for angioplasty and stents on the this month. (Regine Stern) PFSH Past Medical History According to the record ,cardiovascular disease Hyperlipidemia History of depression Anxiety Hypertension Squamous cell carcinoma in 2008 Past Surgical History CABG 4 in 2013 (Regine Stern) Coded Allergies: No Known Allergies (Unverified Allergy, Unknown, 02/18/18) Medications Administered Medications Medications (Trade) Dose Ordered Sig/Yuliet Route PRN Reason Start Time Stop Time Status Last Admin Dose Admin Famotidine (Pepcid Inj) 20 mg ONCE IV PUSH 02/18/18 23:30 02/18/18 23:57 Sodium Chloride 1,000 ml @ 125 mls/hr Q8H IV 02/19/18 02:14 02/19/18 03:48 Sodium Chloride (NS Flush) 2 ml BID IV FLUSH 02/19/18 09:00 02/19/18 08:27 Pantoprazole Sodium (Protonix Inj) 40 mg BID IV PUSH 02/19/18 09:00 02/19/18 08:27 Isosorbide Mononitrate (Imdur) 30 mg DAILY PO 02/19/18 09:00 02/19/18 08:26 Metoprolol Tartrate (Lopressor) 25 mg BID PO 02/19/18 09:00 02/19/18 08:26 Clopidogrel Bisulfate (Plavix) 75 mg DAILY PO 02/19/18 09:00 02/19/18 08:26 Family History Father polyps Cousin colon cancer Social History Alcohol 2-4 beers a day No smoking no illicit drugs (Rgeine Stern) Review of Systems Gastrointestinal: COMPLAINS OF: Black stools (Possible melena), Nausea (Regine Stern) GI Exam Vitals I&O Vital Signs Date Time Temp Pulse Resp B/P (MAP) Pulse Ox O2 Delivery O2 Flow Rate FiO2 02/19/18 08:00 97.7 65 20 132/77 (95) 98 02/19/18 07:31 65 02/19/18 05:01 65 02/19/18 03:40 97.9 67 16 124/76 (92) 96 02/19/18 03:35 02/19/18 02:02 71 18 132/77 (95) 100 Room Air 02/19/18 01:00 72 18 119/66 (83) 99 Room Air 02/18/18 23:22 78 144/79 (100) 129/71 (90) 02/18/18 23:07 78 18 100 Room Air 02/18/18 22:54 97.9 77 18 149/79 (102) 100 Imaging Last Impressions Chest X-Ray 02/18/18 6998 Signed Impressions: CONCLUSION: No active disease. Postoperative CABG. Laboratory Test 02/18/18 23:27 02/19/18 08:05 White Blood Count 7.7 TH/MM3 Red Blood Count 4.54 MIL/MM3 Hemoglobin 14.3 GM/DL Hematocrit 40.6 % Mean Corpuscular Volume 89.4 FL Mean Corpuscular Hemoglobin 31.4 PG Mean Corpuscular Hemoglobin Concent 35.1 % Red Cell Distribution Width 13.4 % Platelet Count 205 TH/MM3 Mean Platelet Volume 7.7 FL Neutrophils (%) (Auto) 60.1 % Lymphocytes (%) (Auto) 26.6 % Monocytes (%) (Auto) 7.6 % Eosinophils (%) (Auto) 4.5 % Basophils (%) (Auto) 1.2 % Neutrophils # (Auto) 4.6 TH/MM3 Lymphocytes # (Auto) 2.0 TH/MM3 Monocytes # (Auto) 0.6 TH/MM3 Eosinophils # (Auto) 0.3 TH/MM3 Basophils # (Auto) 0.1 TH/MM3 CBC Comment DIFF FINAL Differential Comment Prothrombin Time 10.1 SEC Prothromb Time International Ratio 1.0 RATIO Activated Partial Thromboplast Time 22.2 SEC Blood Urea Nitrogen 15 MG/DL Creatinine 1.42 MG/DL Random Glucose 104 MG/DL Total Protein 7.7 GM/DL Albumin 3.6 GM/DL Calcium Level 8.2 MG/DL Magnesium Level 2.0 MG/DL Alkaline Phosphatase 91 U/L Aspartate Amino Transf (AST/SGOT) 103 U/L Alanine Aminotransferase (ALT/SGPT) 60 U/L Total Bilirubin 0.7 MG/DL Sodium Level 141 MEQ/L Potassium Level 4.6 MEQ/L Chloride Level 105 MEQ/L Carbon Dioxide Level 26.9 MEQ/L Anion Gap 9 MEQ/L Estimat Glomerular Filtration Rate 50 ML/MIN Total Creatine Kinase 158 U/L Creatine Kinase MB 0.9 NG/ML Troponin I LESS THAN 0.02 NG/ML LESS THAN 0.02 NG/ML Ethyl Alcohol Level LESS THAN 3 MG/DL Physical Examination HEENT: normocephalic; atraumatic; no jaundice. NECK: Neck is supple, no JVD, no lymphadenopathy. CHEST: Chest is clear to auscultation and percussion. No obvious rhonchi or wheezing CARDIAC: Regular rate and rhythm ABDOMEN: Round, soft, nondistended, mild epigastric tenderness which waxes and wanes; no hepatosplenomegaly; bowel sounds are present in all four quadrants. EXTREMITIES: No edema. SKIN: Normal; no rash; no jaundice. 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 Speech understandable (Regine Stern) Assessment and Plan Plan Positive Hemoccult Epigastric pain Nausea Chest pain cardiac versus noncardiac, recent heart cath with coronary artery disease and patient is set up for angioplasty on the of this month, transition to Plavix. Patient has been taken Pepto-Bismol and increased amounts of NSAIDs for the past 6 months 62-year-old male who presents to the hospital on 02/19/2018 with substernal and epigastric chest pain worsening after eating spicy foods. He does note symptoms for the past 4 days off and on but worsened over the past 24 hours. Current hemoglobin 14.3 AST 103 ALT 60. Patient does consume daily alcohol, and fatty diet. No history of EGD or colonoscopy. Positive family history of father with polyps and cousin with colon cancer. Plan Clear liquids Consider EGD, TBA, and will need colonoscopy due to his positive family history. Questionable timing of these advance based on patient's current cardiovascular disease and he is angioplasty which is scheduled for the of this month. Plan delay EGD colonoscopy for now, after patient has had angioplasty and been on Plavix at length the time and is stable from cardiology standpoint. According to cardiology will need Plavix for 1 year. Will need to continue to evaluate patient's upper GI symptoms PPI IV, and will need p.o. on discharge. Avoid NSAIDs Avoid caffeinated drinks Avoid alcohol Bowel regimen GI will sign off for now and will follow as an outpatient in 3 months. Please arrange on discharge planning papers Patient was seen per myself and Dr. Sherman, this note was written on his behalf (Regine Stern) Physician Comments Seen with madeleine Bonner as above. Recent cath showing significant disease and just started on double antiplatelates agents. Will need endoscopic evaluation after clearance. Please notify us for active bleeding. (Jenny Sherman MD) Regine Stern Feb 19, 2018 10:47 Jenny Sherman MD Feb 19, 2018 14:11
--- NOTE | 2018-02-19 14:48 | EKG ---
Date Performed: 02/19/2018 Time Performed: 05:41:21 PTAGE: 62 years EKG: Sinus rhythm NORMAL ECG PREVIOUS TRACING : 02/18/2018 21.52 Since the previous tracing, no significant change noted DOCTOR: Shashi Dominguez Interpretating Date/Time 02/19/2018 14:46:55
--- NOTE | 2018-02-19 14:57 | EKG ---
Date Performed: 02/18/2018 Time Performed: 21:52:43 PTAGE: 62 years EKG: Sinus rhythm WITH FIRST DEGREE AV BLOCK ABNORMAL ECG INTERPRETATION BASED ON A DEFAULT AGE OF 40 YEARS PREVIOUS TRACING : 02/15/2018 06.33 Since the previous tracing, no significant change not ed DOCTOR: Shashi Dominguez Interpretating Date/Time 02/19/2018 14:56:20
[2018-02-19] MEDS: ATORVASTATIN 40 MG TAB PO SCH (20:20)
--- NOTE | 2018-02-19 21:55 | MB ---
cc: Enzo Buchanan Vincent G DO DATE: 02/19/2018 REASON FOR CONSULTATION: Chest pain. HISTORY OF PRESENT ILLNESS: Anibal Merino is a pleasant 62-year-old male who sees my partner, Dr. Dominic Gilmore, in the office who presented to [facility] on 10/22/2017 due to epigastric pain. The patient previously was here and underwent cardiac catheterization by Dr. Gilmore on 02/15/2018. At that time, he was determined to have some disease throughout the left main into the LAD before its occlusion. This supplies a small diagonal as well as some septal perforators and Dr. Gilmore was planning on possibly intervening on that in the next few weeks. The patient went home and had a normal day Wednesday and then Wednesday, 02/16, he ate a bowl of cereal at night which sometimes gives him indigestion. He woke up and had some pain in the epigastric region, which was somewhat different that his indigestion but was somewhat of a gnawing feeling. He states that this was different than his anginal feeling. It finally went away and he went to sleep. He then had a normal day on and then last night, 02/18/2018, he had pineapple and then he ate a stuffed pepper and a similar type feeling with a gnawing sensation in his epigastric region and he thought he was having a heart attack, so he came to the emergency room. In seeing him, he states that he does not have chest pain and this is different than his angina, but it is epigastric and somewhat different than his previous indigestion pain. He states that cereal and milk late at night usually does cause him indigestion, as well as spicy foods. He also notes that he has had some dark stools, but he was also taking Pepto-Bismol which may be causing this. Lastly, apparently he has had shoulder pain for some time and he has been taking Advil for 6 months straight. He was seen by GI and they were originally planning to do an EGD for possible dyspepsia and possible colonoscopy for screening. PAST MEDICAL HISTORY: 1. Coronary artery disease. 2. Hyperlipidemia. 3. Depression. 4. Anxiety. 5. Hypertension. 6. Gastroesophageal reflux disease. 7. Squamous cell carcinoma (2019). PAST SURGICAL HISTORY: 1. Coronary artery bypass grafting (03/09/2014) with MORALEZ to LAD, SVG to OM1, SVG to OM2, SVG to RCA. 2. Cardiac catheterization (02/15/2018): Left main 50% throughout with distal 99%. LAD is severely and diffusely diseased with a focal 90% stenosis. It gives off a small to moderate diagonal branch and after the diagonal the LAD is at least diffusely 70% diseased. Left circumflex has 80-90% proximal stenosis with competitive flow distally. RCA is totally occluded. MORALEZ to LAD is patent with the distal LAD having 95% stenosis and an overall small vessel of 1 mm. SVG to OM1 is patent. SVG to OM2 is patent. SVG to RCA is patent. ALLERGIES: NO KNOWN DRUG ALLERGIES. MEDICATIONS: 1. Plavix 75 mg daily. 2. Lipitor 40 mg every night. 3. Imdur 30 mg daily. 4. Nitro sublingual as needed. 5. Cialis 10 mg daily as needed. 6. Metoprolol tartrate 25 mg b.i.d. 7. Aspirin 325 mg daily. 8. Ativan 0.5 mg every 6 hours as needed for anxiety. 9. Multivitamin. FAMILY HISTORY: Mother from a myocardial infarction at 73. Father is alive at 90 with a history of hypertension and diabetes. His siblings have hypertension, diabetes and coronary artery disease. 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 He drinks 2-4 beers a day. He denies tobacco or drug abuse. REVIEW OF SYSTEMS: Fourteen systems were reviewed including osteopathic. Pertinent positives and negatives as above, otherwise negative. PHYSICAL EXAMINATION: VITAL SIGNS: Temperature 97.7, heart rate 65, blood pressure 132/77, respirations 20, pulse oximetry 98% on room air. GENERAL: The patient appears well in no acute distress. Alert, awake and oriented x3. HEENT: Extraocular muscles intact. Mucous membranes moist. NECK: Supple. No JVD at 45 degrees. No carotid bruits heard bilaterally. Carotid stroke is brisk in nature. HEART: Regular rate and rhythm. Positive first and second heart sounds with no noted murmurs, gallops or rubs. LUNGS: Clear to auscultation bilaterally. No wheezes, rales or rhonchi. ABDOMEN: Soft, nontender, nondistended. No organomegaly noted. EXTREMITIES: Show no clubbing, cyanosis or edema. Femoral and distal pulses intact bilaterally. NEUROLOGIC: No focal deficits. SKIN: Warm, dry and intact. OSTEOPATHIC: No kyphoscoliosis, lordosis or paraspinal tender points. LABORATORY DATA: Hemoglobin 14.3, hematocrit 40.6, platelets 205. Potassium 4.6, BUN 15, creatinine 1.42. Troponin negative x3. CARDIOLOGY STUDIES: Electrocardiogram (02/19/2018 at 12:46): Sinus rhythm, first degree AV block: No acute ST-T wave changes. IMPRESSION: 1. Epigastric pain most likely due to dyspepsia, but cannot rule out gastric ulcer. 2. Coronary artery disease with a history of coronary artery bypass grafting as above. 3. Melanotic stools, although the patient has been using Pepto-Bismol. 4. Hyperlipidemia. 5. Hypertension. 6. Chronic kidney disease, stage III. RECOMMENDATIONS: 1. Mr. Merino presented with concerns for angina, but overall I feel that this is more likely gastrointestinal in nature as it happened after eating spicy food and cereal with milk, which he knows causes him indigestion. 2. He has been using NSAIDs for 6 months and overall concern for possible gastritis or ulcer as well as possibly melanotic stools, although this may be due to Pepto-Bismol. 3. I spoke with gastroenterology and overall I think he is a moderate risk, but I think that we need to rule out upper gastrointestinal bleed or ulcer before giving him high-dose heparin, possible IIb/IIIa inhibitors and further dual antiplatelet therapy. 4. I discussed the case with Dr. Gilmore, who will see him on Wednesday and further determine timing of intervention based on gastroenterology workup. 5. Overall, he does have coronary artery disease, but the area of concern is somewhat minimal and I do not believe that he is having true angina, he is not in heart failure, and he is electrically and hemodynamically stable and may proceed with an EGD as we could not decrease his risk more based on this needing to be done before coronary intervention. Thank you for allowing me to see Anibal Merino. If there are any questions, please do not hesitate to call. Enzo Buchanan DO VGP/SA , 09:03 PM , 09:53 PM
[2018-02-20] VITALS (10 sets, daily range): BP systolic 100–142; BP diastolic 66–85; PULSE 54–68; RESP 16–20; TEMP 97.7–98.9; O2SAT 95–98
[2018-02-20] MEDS: SODIUM CHLOR 0.9% 1000 ML INJ 1,000 ML IV SCH ×3 (02:14→16:08)
[2018-02-20 07:03] LABS: AUTOMATED NEUTROPHIL # 5.8 TH/MM3 (1.8-7.7); BASOPHIL # 0.1 TH/MM3 (0-0.2); BASOPHIL % 0.9 % (0.0-2.0); EOSINOPHIL # 0.4 TH/MM3 (0-0.4); EOSINOPHIL % 5.1 % (0.0-4.0); HEMATOCRIT 36.7 % (39.0-51.0); HEMOGLOBIN 13.1 GM/DL (13.0-17.0); LYMPH % 17.1 % (9.0-44.0); LYMPHOCYTE # 1.4 TH/MM3 (1.0-4.8); MEAN CELL VOLUME 89.4 FL (80.0-100.0); MEAN CORPUSCULAR HEMOGLOBIN 31.9 PG (27.0-34.0); MEAN CORPUSCULAR HGB CONC 35.7 % (32.0-36.0); MEAN PLATELET VOLUME 7.6 FL (7.0-11.0); MONO % 5.6 % (0.0-8.0); MONOCYTE # 0.5 TH/MM3 (0-0.9); NEUT % 71.3 % (16.0-70.0); PLATELET COUNT 167 TH/MM3 (150-450); RED CELL DISTRIBUTION WIDTH 13.4 % (11.6-17.2); WHITE BLOOD COUNT 8.1 TH/MM3 (4.0-11.0)
[2018-02-20 07:21] LABS: BICARBONATE 24.3 MEQ/L (21.0-32.0); CALCIUM 7.8 MG/DL (8.5-10.1); CREATININE 1.18 MG/DL (0.60-1.30)
[2018-02-20] MEDS: ISOSORBIDE MONONITRATE 30 MG CR TAB (IMDUR) PO SCH (08:14)
[2018-02-20] MEDS: CLOPIDOGREL 75 MG TAB PO SCH (08:14)
[2018-02-20] MEDS: METOPROLOL TARTRATE 25 MG TAB PO SCH ×2 (08:14→20:37)
[2018-02-20] MEDS: PANTOPRAZOLE SODIUM 40 MG VIAL IV PUSH SCH ×2 (08:14→20:38)
[2018-02-20] MEDS: SODIUM CHLORIDE 0.9% FLUSH 10 ML FLUSH IV FLUSH SCH ×2 (08:15→20:38)
--- NOTE | 2018-02-20 08:31 | HHI.FPPN ---
Subjective Remarks Patient states he is doing well this morning. He denies complaints at this time. He denies chest pain, nausea, vomiting, shortness of breath. Objective Vitals Vital Signs Date Time Temp Pulse Resp B/P (MAP) Pulse Ox O2 Delivery O2 Flow Rate FiO2 02/20/18 06:59 65 02/20/18 03:47 98.1 63 16 125/73 (90) 97 02/20/18 00:01 98.0 64 16 108/66 (80) 97 02/19/18 19:41 97.9 70 16 127/72 (90) 97 02/19/18 16:14 65 02/19/18 16:00 98.3 64 20 155/70 (98) 99 02/19/18 12:00 96.9 59 20 109/69 (82) 96 I/O 02/19/18 02/19/18 02/19/18 02/20/18 02/20/18 02/20/18 06:59 14:59 22:59 06:59 14:59 22:59 Intake Total 200 ml 1000 ml Balance 200 ml 1000 ml Intake Oral 200 ml IV Total 1000 ml # Voids 1 3 5 # Bowel Movements 1 1 Result Diagram: 02/20/1812 02/20/18 0612 Objective Remarks GENERAL: Pleasant, well-appearing, in no acute distress SKIN: No rashes, ecchymoses or lesions. Cool and dry. HEAD: Atraumatic. Normocephalic. EYES: Pupils equal round and reactive. Extraocular motions intact. No scleral icterus. No injection or drainage. ENT: Nose without bleeding, purulent drainage or septal hematoma. NECK: Trachea midline. CARDIOVASCULAR: Regular rate and rhythm without murmurs, gallops, or rubs. RESPIRATORY: Clear to auscultation. Breath sounds equal bilaterally. No wheezes , rales, or rhonchi. GASTROINTESTINAL: Abdomen soft, non-tender, nondistended. No guarding. MUSCULOSKELETAL: Extremities without clubbing, cyanosis, or edema. No joint tenderness, effusion, or edema noted. NEUROLOGICAL: Awake and alert. Oriented 3 A/P Assessment and Plan 62-year-old male with history of CABG x4 in 2014, HTN, and hyperlipidemia presented to the ED with substernal chest pain. Found to be Hemoccult positive. Recently underwent catheterization which shows significant stenosis in the distal LAD and other coronaries. We will consult cardiology and gastroenterology for recommendations per Discharge Planning Pending specialist recommendations Problem List: (1) Substernal chest pain ICD Codes: R07.2 - Precordial pain Status: Acute Plan: Patient presenting with acute substernal chest pain. History of CABG 4. Diagnostic cath performed [address] Gilmore. Left main distally occluded 99%. Patient was scheduled to have angioplasty with stents on of this month. Patient also with Hemoccult positive stool and possibility of gastric ulcer based on history. Cardiology consulted-recommend working up possible GI source prior to further cardiac workup Gastroenterology consulted as below. 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 Gilmore, will be back on Wednesday (3) Heme positive stool ICD Codes: R19.5 - Other fecal abnormalities Plan: Patient complaining of black tarry stools and has a history of chronic NSAID use. Hemoccult positive, performed in the ED by Dr. Landers& Mele larkin Continue Protonix 40 mg IV twice daily GI consulted for suspected upper GI bleed-plan for EGD on 02/21 Celiac panel ordered (4) Hyperlipidemia ICD Codes: E78.5 - Hyperlipidemia Status: Acute Plan: Continue atorvastatin 40 mg p.o. at bedtime (5) Hypertension ICD Codes: I10 - Hypertension Status: Acute Plan: Continue metoprolol 25 mg p.o. twice daily (6) Nutrition, metabolism, and development symptoms ICD Codes: R63.8 - Other symptoms and signs concerning food and fluid intake Plan: Diet: Clear liquid diet and n.p.o. orders at midnight per GI for possible EGD on Wednesday Fluids: Normal saline at maintenance rate 125mls/hr Vitals every 4h, monitor I's and O's DVT ppx: SCDs Case Management consulted (7) Elevated serum creatinine ICD Codes: R79.89 - Other specified abnormal findings of blood chemistry Status: Resolved Plan: Creatinine of 1.42 on admission-careful with contrast and nephrotoxins Resolved Anibal Case MD R3 Feb 20, 2018 08:31
--- NOTE | 2018-02-20 11:28 | HHI.GIFU ---
Subjective Remarks Patient is resting in the bed drinking clear liquids Has already taken his Plavix dose this morning Discussed options of EGD to be scheduled in a.m. and explained to patient Patient has significant history of celiac disease in his family including his daughter and would like to be checked and biopsies done for celiac No acute abdominal pain, nausea or vomiting (Regine Stern) Objective Vitals I&O Vital Signs Date Time Temp Pulse Resp B/P (MAP) Pulse Ox O2 Delivery O2 Flow Rate FiO2 02/20/18 08:00 98.8 66 20 140/79 (99) 96 02/20/18 06:59 65 02/20/18 03:47 98.1 63 16 125/73 (90) 97 02/20/18 00:01 98.0 64 16 108/66 (80) 97 02/19/18 19:41 97.9 70 16 127/72 (90) 97 02/19/18 16:14 65 02/19/18 16:00 98.3 64 20 155/70 (98) 99 02/19/18 12:00 96.9 59 20 109/69 (82) 96 I/O 02/19/18 02/19/18 02/19/18 02/20/18 02/20/18 02/20/18 07:00 15:00 23:00 07:00 15:00 23:00 Intake Total 200 ml 1000 ml Balance 200 ml 1000 ml Intake Oral 200 ml IV Total 1000 ml # Voids 1 4 4 # Bowel Movements 2 Laboratory Laboratory Tests Test 02/19/18 12:26 02/20/18 06:12 Troponin I LESS THAN 0.02 White Blood Count 8.1 Red Blood Count 4.10 Hemoglobin 13.1 Hematocrit 36.7 Mean Corpuscular Volume 89.4 Mean Corpuscular Hemoglobin 31.9 Mean Corpuscular Hemoglobin Concent 35.7 Red Cell Distribution Width 13.4 Platelet Count 167 Mean Platelet Volume 7.6 Neutrophils (%) (Auto) 71.3 Lymphocytes (%) (Auto) 17.1 Monocytes (%) (Auto) 5.6 Eosinophils (%) (Auto) 5.1 Basophils (%) (Auto) 0.9 Neutrophils # (Auto) 5.8 Lymphocytes # (Auto) 1.4 Monocytes # (Auto) 0.5 Eosinophils # (Auto) 0.4 Basophils # (Auto) 0.1 CBC Comment DIFF FINAL Differential Comment Blood Urea Nitrogen 9 Creatinine 1.18 Random Glucose 84 Calcium Level 7.8 Sodium Level 144 Potassium Level 3.7 Chloride Level 111 Carbon Dioxide Level 24.3 Anion Gap 9 Estimat Glomerular Filtration Rate 62 Imaging Last Impressions Chest X-Ray 02/18/18 5432 Signed Impressions: CONCLUSION: No active disease. Postoperative CABG. Physical Exam HEENT: normocephalic; atraumatic; no jaundice. Throat is clear. Speech understandable NECK: Neck is supple, no JVD, no lymphadenopathy. CHEST: Mild diminished breath sounds in the bases CARDIAC: Regular rate and rhythm ABDOMEN: Soft, nondistended, nontender this a.m. ; no hepatosplenomegaly; bowel sounds are present in all four quadrants. EXTREMITIES: No clubbing, cyanosis, or edema. SKIN: Normal; no rash; no jaundice. 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 (Regine Stern) Assessment and Plan Plan Positive Hemoccult Epigastric pain Nausea Chest pain cardiac versus noncardiac, recent heart cath with coronary artery disease and patient is set up for angioplasty on the of this month, transition to Plavix. Patient has been taken Pepto-Bismol and increased amounts of NSAIDs for the past 6 months 62-year-old male who presents to the hospital on 02/19/2018 with substernal and epigastric chest pain worsening after eating spicy foods. He does note symptoms for the past 4 days off and on but worsened over the past 24 hours. Current hemoglobin 14.3 AST 103 ALT 60. Patient does consume daily alcohol, and fatty diet. No history of EGD or colonoscopy. Positive family history of father with polyps and cousin with colon cancer. 02/20/2018 discussed with cardiology plan of care for this patient. Epigastric, initial nausea after eating spicy foods is compatible with symptoms of GERD, esophagitis and possible ulcers. Plan is to go ahead and do EGD in the morning so adequate treatment can be done before patient has his cardiac procedures. Maintain clear liquids today. Patient has no diarrhea or abdominal pain colonoscopy screening can be done as outpatient at a later date. Cardiac clearance has been given per Dr. Buchanan Plan Clear liquids Consent for EGD in the a.m. Hold Plavix dose in the a.m. but may give after EGD PPI IV Avoid NSAIDs Avoid caffeinated drinks Avoid alcohol Bowel regimen Patient was seen per myself and Dr. Sherman, this note was written on his behalf (Regine Stern) Physician Comments Discussed with primary team. Will proceed with diagnostic EGD in AM. Further recommendations to follow. (Jenny Sherman MD) Regine Stern Feb 20, 2018 11:28 Jenny Sherman MD Feb 20, 2018 14:20
--- NOTE | 2018-02-20 11:42 | PD.CARD.PN ---
Subjective Subjective Remarks No events overnight Still with some melanotic stools Objective Medications Current Medications Medications (Trade) Dose Ordered Sig/Yuliet Route Start Time Stop Time Status Last Admin (Pepcid Inj) 20 mg ONCE IV PUSH 02/18/18 23:30 02/18/18 23:57 Sodium Chloride 1,000 ml @ 125 mls/hr Q8H IV 02/19/18 02:14 02/20/18 08:16 (NS Flush) 2 ml UNSCH PRN IV FLUSH 02/19/18 02:15 (NS Flush) 2 ml BID IV FLUSH 02/19/18 09:00 02/19/18 08:27 (Zofran Inj) 4 mg Q6H PRN IVP 02/19/18 02:15 (Narcan Inj) 0.4 mg UNSCH PRN IV PUSH 02/19/18 02:15 (Protonix Inj) 40 mg BID IV PUSH 02/19/18 09:00 02/20/18 08:14 (Lipitor) 40 mg HS PO 02/19/18 21:00 02/19/18 20:20 (Imdur) 30 mg DAILY PO 02/19/18 09:00 02/20/18 08:14 (Lopressor) 25 mg BID PO 02/19/18 09:00 02/20/18 08:14 (Nitrostat Sl) 0.4 mg ONCE PRN SL 02/19/18 02:30 02/21/18 02:29 (Plavix) 75 mg DAILY PO 02/19/18 09:00 02/20/18 08:14 Vital Signs / I&O Vital Signs Date Time Temp Pulse Resp B/P (MAP) Pulse Ox O2 Delivery O2 Flow Rate FiO2 02/20/18 08:00 98.8 66 20 140/79 (99) 96 02/20/18 06:59 65 02/20/18 03:47 98.1 63 16 125/73 (90) 97 02/20/18 00:01 98.0 64 16 108/66 (80) 97 02/19/18 19:41 97.9 70 16 127/72 (90) 97 02/19/18 16:14 65 02/19/18 16:00 98.3 64 20 155/70 (98) 99 02/19/18 12:00 96.9 59 20 109/69 (82) 96 I/O 02/19/18 02/19/18 02/19/18 02/20/18 02/20/18 02/20/18 07:00 15:00 23:00 07:00 15:00 23:00 Intake Total 200 ml 1000 ml Balance 200 ml 1000 ml Intake Oral 200 ml IV Total 1000 ml # Voids 1 4 4 # Bowel Movements 2 Physical Exam GENERAL: NAD, AAOx3 SKIN: Warm and dry. HEAD: Atraumatic. Normocephalic. EYES: Pupils equal and round. No scleral icterus. No injection or drainage. ENT: No nasal bleeding or discharge. Mucous membranes pink and moist. NECK: Trachea midline. No JVD. CARDIOVASCULAR: Regular rate and rhythm. RESPIRATORY: No accessory muscle use. Clear to auscultation. Breath sounds equal bilaterally. GASTROINTESTINAL: Abdomen soft, non-tender, nondistended. Hepatic and splenic margins not palpable. MUSCULOSKELETAL: Extremities without clubbing, cyanosis, or edema. No obvious deformities. NEUROLOGICAL: Awake and alert. No obvious cranial nerve deficits. Motor grossly within normal limits. Five out of 5 muscle strength in the arms and legs. Normal speech. PSYCHIATRIC: Appropriate mood and affect; insight and judgment normal. Laboratory Laboratory Tests Test 02/19/18 12:26 02/20/18 06:12 Troponin I LESS THAN 0.02 NG/ML White Blood Count 8.1 TH/MM3 Red Blood Count 4.10 MIL/MM3 Hemoglobin 13.1 GM/DL Hematocrit 36.7 % Mean Corpuscular Volume 89.4 FL Mean Corpuscular Hemoglobin 31.9 PG Mean Corpuscular Hemoglobin Concent 35.7 % Red Cell Distribution Width 13.4 % Platelet Count 167 TH/MM3 Mean Platelet Volume 7.6 FL Neutrophils (%) (Auto) 71.3 % Lymphocytes (%) (Auto) 17.1 % Monocytes (%) (Auto) 5.6 % Eosinophils (%) (Auto) 5.1 % Basophils (%) (Auto) 0.9 % Neutrophils # (Auto) 5.8 TH/MM3 Lymphocytes # (Auto) 1.4 TH/MM3 Monocytes # (Auto) 0.5 TH/MM3 Eosinophils # (Auto) 0.4 TH/MM3 Basophils # (Auto) 0.1 TH/MM3 CBC Comment DIFF FINAL Differential Comment Blood Urea Nitrogen 9 MG/DL Creatinine 1.18 MG/DL Random Glucose 84 MG/DL Calcium Level 7.8 MG/DL Sodium Level 144 MEQ/L Potassium Level 3.7 MEQ/L Chloride Level 111 MEQ/L Carbon Dioxide Level 24.3 MEQ/L Anion Gap 9 MEQ/L Estimat Glomerular Filtration Rate 62 ML/MIN Assessment and Plan Problem List: (1) Epigastric abdominal pain ICD Codes: R10.13 - Epigastric pain (2) Black tarry stools ICD Codes: K92.1 - Melena (3) Coronary artery disease ICD Codes: I25.10 - Coronary artery disease Status: Acute (4) Hypertension ICD Codes: I10 - Hypertension Status: Acute (5) Hyperlipidemia ICD Codes: E78.5 - Hyperlipidemia Status: Acute (6) Heme positive stool ICD Codes: R19.5 - Other fecal abnormalities (7) Depression ICD Codes: F32.9 - Depression Status: Acute Assessment and Plan 1) Overall pain sounds not like his angina but epigastric after eating 2) Melanotic stools Originally felt to be due to Pepto-Bismol but still having some 3) NSAID use Has been using for 6 months Should be avoided due to possible gastritis, HTN and ischemic heart disease 4) Moderate risk for GI procedures Unable to decrease his risk, overall area that Dr. Gilmore plans to fix would be relatively small to moderate Needs to have before intervention as unable to place on high-dose heparin, possible IIb/IIIa inhibitors or further DAPT 5) Dr. Gilmore to follow up tomorrow Timing of intervention based on GI work up Enzo Buchanan DO Feb 20, 2018 11:42
[2018-02-20] MEDS ORDERED: LACTATED RINGER'S 1000 ML IV PRN (12:15)
[2018-02-20] MEDS ORDERED: POVIDONE IODINE 5% (ANTISEPSIS KIT) 4 APPLICATIONS EACH NARE PRN (12:15)
[2018-02-20] MEDS ORDERED: CHLORHEXIDINE GLUCONATE 2 % 1 PACK (2 CLOTHS) TOPICAL PRN (12:15)
[2018-02-20] MEDS ORDERED: SODIUM CHLORID 0.9% 500 ML IV PRN (12:15)
[2018-02-20] MEDS ORDERED: METOPROLOL TARTRATE 25 MG TAB PO PRN (12:15)
--- NOTE | 2018-02-20 15:11 | EKG ---
Date Performed: 02/19/2018 Time Performed: 12:46:22 PTAGE: 62 years EKG: SINUS BRADYCARDIA WITH FIRST DEGREE AV BLOCK ABNORMAL ECG NO PREVIOUS TRACING DOCTOR: Shashi Dominguez Interpretating Date/Time 02/20/2018 15:10:12
[2018-02-20] MEDS: ATORVASTATIN 40 MG TAB PO SCH (20:37)
[2018-02-21] VITALS (9 sets, daily range): BP systolic 108–157; BP diastolic 59–83; PULSE 54–81; RESP 15–18; TEMP 97.2–98.1; O2SAT 94–96
[2018-02-21] MEDS: SODIUM CHLOR 0.9% 1000 ML INJ 1,000 ML IV SCH (02:14)
[2018-02-21 05:51] LABS: AUTOMATED NEUTROPHIL # 3.7 TH/MM3 (1.8-7.7); BASOPHIL % 0.7 % (0.0-2.0); EOSINOPHIL # 0.4 TH/MM3 (0-0.4); EOSINOPHIL % 7.3 % (0.0-4.0); HEMATOCRIT 35.2 % (39.0-51.0); HEMOGLOBIN 12.4 GM/DL (13.0-17.0); LYMPH % 24.5 % (9.0-44.0); LYMPHOCYTE # 1.5 TH/MM3 (1.0-4.8); MEAN CORPUSCULAR HEMOGLOBIN 31.3 PG (27.0-34.0); MEAN CORPUSCULAR HGB CONC 35.2 % (32.0-36.0); MEAN PLATELET VOLUME 7.7 FL (7.0-11.0); MONO % 6.5 % (0.0-8.0); MONOCYTE # 0.4 TH/MM3 (0-0.9); PLATELET COUNT 157 TH/MM3 (150-450); RED BLOOD COUNT 3.96 MIL/MM3 (4.50-5.90); RED CELL DISTRIBUTION WIDTH 13.3 % (11.6-17.2)
[2018-02-21 06:13] LABS: BICARBONATE 22.2 MEQ/L (21.0-32.0); CALCIUM 7.9 MG/DL (8.5-10.1); CREATININE 1.09 MG/DL (0.60-1.30)
--- NOTE | 2018-02-21 07:46 | HHI.FPPN ---
Subjective Remarks Pt out of his room this morning for EGD. Pt seen and examined after EGD. No acute events overnight. He denies red stools, but they have been black and tarry , he attributes this to taking Pepto Bismol, which he last took prior to admission. He reports doing well overall. He denies chest pain, abdominal pain, feeling short of breath. He denies any additional acute concerns. (Abel Méndez MD R3) Objective Vitals Vital Signs Date Time Temp Pulse Resp B/P (MAP) Pulse Ox O2 Delivery O2 Flow Rate FiO2 02/21/18 04:00 98.1 63 15 150/74 (99) 95 02/21/18 04:00 Room Air 02/21/18 04:00 57 02/21/18 00:03 57 02/21/18 00:00 97.9 62 17 140/78 (98) 94 02/21/18 00:00 Room Air 02/20/18 22:00 54 02/20/18 21:50 97.7 58 17 142/85 (104) 95 02/20/18 20:12 98 02/20/18 19:34 98.4 68 16 142/74 (96) 97 02/20/18 16:00 98.0 61 20 100/66 (77) 96 02/20/18 12:00 98.9 65 20 139/70 (93) 97 02/20/18 08:00 98.8 66 20 140/79 (99) 96 I/O 02/20/18 02/20/18 02/20/18 02/21/18 02/21/18 02/21/18 07:00 15:00 23:00 07:00 15:00 23:00 Intake Total 1000 ml 0 ml Output Total 850 ml Balance 1000 ml -850 ml Intake Oral 0 ml IV Total 1000 ml Output Urine Total 850 ml # Bowel Movements 0 (Abel Méndez MD R3) Result Diagram: 02/21/180 02/21/18 0430 Objective Remarks GENERAL: Pleasant, well-appearing, in no acute distress SKIN: No rashes, ecchymoses or lesions. Cool and dry. HEAD: Atraumatic. Normocephalic. EYES: Extraocular motions intact. No scleral icterus. No injection or drainage. ENT: Nose without bleeding, purulent drainage or septal hematoma. NECK: Trachea midline. CARDIOVASCULAR: Regular rate and rhythm without murmurs, gallops, or rubs. RESPIRATORY: Clear to auscultation. Breath sounds equal bilaterally. No wheezes , rales, or rhonchi. GASTROINTESTINAL: Abdomen soft, non-tender, nondistended. No guarding. +bowel sounds. MUSCULOSKELETAL: Extremities without clubbing, cyanosis, or edema. No joint tenderness, effusion, or edema noted. NEUROLOGICAL: Awake and alert. Oriented 3 (Abel Méndez MD R3) A/P Assessment and Plan 62-year-old male with history of CABG x4 in 2013, HTN, and hyperlipidemia presented to the ED with substernal chest pain. Found to be Hemoccult positive. Recently underwent catheterization which shows significant stenosis in the distal LAD and other coronaries. We will consult cardiology and gastroenterology for recommendations. Pt underwent EGD on 02/21. Discharge Planning Pending specialist recommendations (Abel Méndez MD R3) Attending Attestation Patient not seen as he was getting his EGD. Case reviewed and discussed with the resident team. Agree with plan of care as discussed with me and documented in the resident note. Reviewed his records and he will need to have his GI bleeding under good control prior to having a stent as he will need anticoagulation for months (Ailyn Loza MD) Problem List: (1) Substernal chest pain ICD Codes: R07.2 - Precordial pain Status: Acute Plan: Resolved Patient presented with acute substernal chest pain. History of CABG 4. Diagnostic cath performed [address] Gilmore. Left main distally occluded 99%. Patient was scheduled to have angioplasty with stents on of this month. Patient also with Hemoccult positive stool and possibility of gastric ulcer based on history. Cardiology consulted-recommend working up possible GI source prior to further cardiac workup Gastroenterology consulted as below. 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 GI consulted for suspected upper GI bleed, appreciate recommendations and intervention EGD on 02/21: significant for small ulcer at gastroesophageal junction, erythematous gastritis, small erosions of antrum. H& H stable Continue Protonix 40 mg IV twice daily Celiac panel ordered (4) Hyperlipidemia ICD Codes: E78.5 - Hyperlipidemia Status: Acute Plan: Continue atorvastatin 40 mg p.o. at bedtime (5) Hypertension ICD Codes: I10 - Hypertension Status: Acute Plan: Continue metoprolol 25 mg p.o. twice daily (6) Elevated serum creatinine ICD Codes: R79.89 - Other specified abnormal findings of blood chemistry Status: Resolved Plan: Resolved Creatinine of 1.42 on admission-careful with contrast and nephrotoxins Continue to monitor (7) Nutrition, metabolism, and development symptoms ICD Codes: R63.8 - Other symptoms and signs concerning food and fluid intake Plan: Diet: Heart healthy diet Fluids: tolerating PO Vitals every 4h, monitor I's and O's DVT ppx: SCDs Case Management consulted (Abel Méndez MD R3) Abel Méndez MD R3 Feb 21, 2018 07:46 Ailyn Loza MD Feb 22, 2018 10:55
[2018-02-21] MEDS: CLOPIDOGREL 75 MG TAB PO SCH (09:00)
[2018-02-21] MEDS: METOPROLOL TARTRATE 25 MG TAB PO SCH ×2 (10:06→20:52)
--- NOTE | 2018-02-21 11:18 | GIPROC ---
[facility] [address] [facility]. [facility], [address] EGD PROCEDURE REPORT EXAM DATE: 02/21/2018 PATIENT NAME: Anibal Merino MR #: [id number] BIRTHDATE: 1955 ATTENDING: Jenny Sherman MD ORDER #: [id number] CRYSTAL EVALUATOR: Shonda Estrella and Rosa Wells STATUS: inpatient INDICATIONS: The patient is a 62 yr old male here for an EGD due to anemia PROCEDURE PERFORMED: EGD w/ biopsy MEDICATIONS: None and Per Anesthesia. TOPICAL ANESTHETIC: none CONSENT: The patient understands the risks and benefits of the procedure and understands that these risks include, but are not limited to: sedation, allergic reaction, infection, perforation and/or bleeding. Alternative means of evaluation and treatment include, among others: physical exam, x-rays, and/or surgical intervention. The patient elects to proceed with this endoscopic procedure. medical equipment was checked for proper function. Hand hygiene and appropriate measures for infection prevention was taken. After the risks, benefits and alternatives of the procedure were thoroughly explained, Informed consent was verified, confirmed and timeout was successfully executed by the treatment team. The patient was anesthetized with topical anesthesia and the [employer] Modularax [id number] endoscope was introduced through the mouth and advanced to the second portion of the duodenum. Retroflexion was performed and was normal The gastroscope was then slowly withdrawn and removed. ESOPHAGUS: A small non-bleeding, round and clean-based ulcer was found at the gastroesophageal junction. Biopsies were taken at edge of the ulcer and at the center of the ulcer. STOMACH: There was erythematous gastritis in the entire examined stomach. Multiple small shallow and irregular shaped erosions were found in the gastric antrum. Multiple biopsies was performed. Sample sent for histology. DUODENUM: The duodenal mucosa appeared normal in the duodenal bulb, 2nd part duodenum, and 3rd part duodenum. ADVERSE EVENTS: There were no complications. IMPRESSIONS: 1. Small ulcer was found at the gastroesophageal junction; biopsies were taken 2. There was erythematous gastritis in the entire examined stomach 3. Multiple small erosions were found in the gastric antrum; multiple biopsies was performed 4. Normal duodenal mucosa in the duodenal bulb, 2nd part duodenum, and 3rd part duodenum 5. Retroflexion was performed and was normal RECOMMENDATIONS: 1. Await biopsy results. Biopsy results will not be ready for 7-10 days. If you don't hear from us in two weeks, call our office for biopsy results. 2. Continue PPI 3. Avoid NSAIDS PATIENT CONDITION: stable DISPOSITION: Observation REPEAT EXAM: NONE Jenny Sherman MD eSigned: Jenny Sherman MD 02/21/2018 11:18 AM cc: PATIENT NAME: Anibal Merino MR#: [id number]
[2018-02-21] MEDS ORDERED: PROPOFOL 200 MG/20 ML AMP IV ONE (12:00)
[2018-02-21] MEDS: PANTOPRAZOLE SODIUM 40 MG VIAL IV PUSH SCH ×2 (15:38→20:52)
[2018-02-21] MEDS: SODIUM CHLORIDE 0.9% FLUSH 10 ML FLUSH IV FLUSH SCH ×2 (15:39→20:52)
[2018-02-21] MEDS: ISOSORBIDE MONONITRATE 30 MG CR TAB (IMDUR) PO SCH (15:39)
--- NOTE | 2018-02-21 19:10 | PD.CARD.PN ---
Subjective Subjective Remarks no chest pain today Objective Medications Current Medications Medications (Trade) Dose Ordered Sig/Yuliet Route Start Time Stop Time Status Last Admin (Pepcid Inj) 20 mg ONCE IV PUSH 02/18/18 23:30 02/18/18 23:57 (NS Flush) 2 ml UNSCH PRN IV FLUSH 02/19/18 02:15 (NS Flush) 2 ml BID IV FLUSH 02/19/18 09:00 02/21/18 15:39 (Zofran Inj) 4 mg Q6H PRN IVP 02/19/18 02:15 (Narcan Inj) 0.4 mg UNSCH PRN IV PUSH 02/19/18 02:15 (Protonix Inj) 40 mg BID IV PUSH 02/19/18 09:00 02/21/18 15:38 (Lipitor) 40 mg HS PO 02/19/18 21:00 02/20/18 20:37 (Imdur) 30 mg DAILY PO 02/19/18 09:00 02/21/18 15:39 (Lopressor) 25 mg BID PO 02/19/18 09:00 02/21/18 10:06 (Plavix) 75 mg DAILY PO 02/19/18 09:00 02/20/18 08:14 Lactated Ringer's 1,000 ml @ 30 mls/hr Q24H PRN IV 02/20/18 12:15 02/23/18 12:14 Sodium Chloride 500 ml @ 30 mls/hr [id number] PRN IV 02/20/18 12:15 02/23/18 12:14 (Lopressor) 25 mg ADAPTED PHYSICAL EDUCATION SPECIALIST PRN PO 02/20/18 12:15 02/23/18 12:14 (Betadine 5% Antisepsis Kit) 1 applic ADAPTED PHYSICAL EDUCATION SPECIALIST PRN EACH NARE 02/20/18 12:15 02/23/18 12:14 (Chlorhexidine 2% Cloth) 3 pack ADAPTED PHYSICAL EDUCATION SPECIALIST PRN TOPICAL 02/20/18 12:15 02/23/18 12:14 Vital Signs / I&O Vital Signs Date Time Temp Pulse Resp B/P (MAP) Pulse Ox O2 Delivery O2 Flow Rate FiO2 02/21/18 16:00 98.1 64 16 121/71 (88) 96 02/21/18 12:00 61 02/21/18 12:00 97.6 57 18 157/83 (107) 95 02/21/18 11:27 97.9 62 14 134/63 (86) 95 02/21/18 08:00 70 02/21/18 08:00 97.2 65 16 147/75 (99) 95 02/21/18 07:00 Room Air 02/21/18 04:00 98.1 63 15 150/74 (99) 95 02/21/18 04:00 Room Air 02/21/18 04:00 57 02/21/18 00:03 57 02/21/18 00:00 97.9 62 17 140/78 (98) 94 02/21/18 00:00 Room Air 02/20/18 22:00 54 02/20/18 21:50 97.7 58 17 142/85 (104) 95 02/20/18 20:12 98 02/20/18 19:34 98.4 68 16 142/74 (96) 97 I/O 02/20/18 02/20/18 02/20/18 02/21/18 02/21/18 02/21/18 07:00 15:00 23:00 07:00 15:00 23:00 Intake Total 1000 ml 0 ml 200 ml Output Total 850 ml 650 ml Balance 1000 ml -850 ml 200 ml -650 ml Intake Oral 0 ml IV Total 1000 ml Other 200 ml Output Urine Total 850 ml 650 ml # Bowel Movements 0 Physical Exam Alert Chest Clear CV S1S2 RRR abd soft Ext no edema Laboratory Laboratory Tests Test 02/21/18 04:30 White Blood Count 6.0 TH/MM3 Red Blood Count 3.96 MIL/MM3 Hemoglobin 12.4 GM/DL Hematocrit 35.2 % Mean Corpuscular Volume 89.0 FL Mean Corpuscular Hemoglobin 31.3 PG Mean Corpuscular Hemoglobin Concent 35.2 % Red Cell Distribution Width 13.3 % Platelet Count 157 TH/MM3 Mean Platelet Volume 7.7 FL Neutrophils (%) (Auto) 61.0 % Lymphocytes (%) (Auto) 24.5 % Monocytes (%) (Auto) 6.5 % Eosinophils (%) (Auto) 7.3 % Basophils (%) (Auto) 0.7 % Neutrophils # (Auto) 3.7 TH/MM3 Lymphocytes # (Auto) 1.5 TH/MM3 Monocytes # (Auto) 0.4 TH/MM3 Eosinophils # (Auto) 0.4 TH/MM3 Basophils # (Auto) 0.0 TH/MM3 CBC Comment DIFF FINAL Differential Comment Blood Urea Nitrogen 7 MG/DL Creatinine 1.09 MG/DL Random Glucose 84 MG/DL Calcium Level 7.9 MG/DL Sodium Level 145 MEQ/L Potassium Level 3.6 MEQ/L Chloride Level 114 MEQ/L Carbon Dioxide Level 22.2 MEQ/L Anion Gap 9 MEQ/L Estimat Glomerular Filtration Rate 68 ML/MIN Assessment and Plan Problem List: (1) Epigastric abdominal pain ICD Codes: R10.13 - Epigastric pain (2) Black tarry stools ICD Codes: K92.1 - Melena (3) Coronary artery disease ICD Codes: I25.10 - Coronary artery disease Status: Acute (4) Hypertension ICD Codes: I10 - Hypertension Status: Acute (5) Hyperlipidemia ICD Codes: E78.5 - Hyperlipidemia Status: Acute (6) Heme positive stool ICD Codes: R19.5 - Other fecal abnormalities (7) Depression ICD Codes: F32.9 - Depression Status: Acute Assessment and Plan I had him scheduled for complex rotoblator stent of his left main February 28 - sounds like that will need to be postponed - need GI opinion on that. Dominic Gilmore MD Feb 21, 2018 19:10
[2018-02-21] MEDS: ATORVASTATIN 40 MG TAB PO SCH (20:52)
[2018-02-21] MEDS ORDERED: DO NOT ADM ANY ANTICOAGULANT DRUGS PRN (23:21)
[2018-02-22] VITALS (9 sets, daily range): BP systolic 102–112; BP diastolic 53–59; PULSE 50–64; RESP 14–17; TEMP 98–98.3; O2SAT 96–97
[2018-02-22 06:55] LABS: AUTOMATED NEUTROPHIL # 5.1 TH/MM3 (1.8-7.7); BASOPHIL # 0.1 TH/MM3 (0-0.2); BASOPHIL % 0.8 % (0.0-2.0); EOSINOPHIL # 0.5 TH/MM3 (0-0.4); EOSINOPHIL % 6.4 % (0.0-4.0); HEMATOCRIT 32.6 % (39.0-51.0); HEMOGLOBIN 11.6 GM/DL (13.0-17.0); LYMPH % 18.6 % (9.0-44.0); LYMPHOCYTE # 1.4 TH/MM3 (1.0-4.8); MEAN CELL VOLUME 88.5 FL (80.0-100.0); MEAN CORPUSCULAR HEMOGLOBIN 31.5 PG (27.0-34.0); MEAN CORPUSCULAR HGB CONC 35.6 % (32.0-36.0); MEAN PLATELET VOLUME 7.8 FL (7.0-11.0); MONOCYTE # 0.5 TH/MM3 (0-0.9); NEUT % 68.2 % (16.0-70.0); PLATELET COUNT 164 TH/MM3 (150-450); RED BLOOD COUNT 3.69 MIL/MM3 (4.50-5.90); RED CELL DISTRIBUTION WIDTH 12.9 % (11.6-17.2); WHITE BLOOD COUNT 7.5 TH/MM3 (4.0-11.0)
[2018-02-22 07:21] LABS: BICARBONATE 23.1 MEQ/L (21.0-32.0); CALCIUM 7.7 MG/DL (8.5-10.1); CREATININE 1.21 MG/DL (0.60-1.30)
[2018-02-22] MEDS: METOPROLOL TARTRATE 25 MG TAB PO SCH (08:05)
[2018-02-22] MEDS: ISOSORBIDE MONONITRATE 30 MG CR TAB (IMDUR) PO SCH (08:05)
[2018-02-22] MEDS: CLOPIDOGREL 75 MG TAB PO SCH (08:06)
[2018-02-22] MEDS: PANTOPRAZOLE SODIUM 40 MG VIAL IV PUSH SCH (08:06)
[2018-02-22] MEDS: SODIUM CHLORIDE 0.9% FLUSH 10 ML FLUSH IV FLUSH SCH (08:07)
--- NOTE | 2018-02-22 10:07 | HHI.FPPN ---
Subjective Remarks No acute events overnight. VS unremarkable. This morning patient reports that he feels well. Denies any chest pain, SOB, abdominal pain. Denies any acute concerns. (Kendal Carr MD R3) Objective Vitals Vital Signs Date Time Temp Pulse Resp B/P (MAP) Pulse Ox O2 Delivery O2 Flow Rate FiO2 02/22/18 08:08 98.2 55 17 104/59 (74) 97 02/22/18 08:00 53 02/22/18 07:00 Room Air 02/22/18 04:00 Room Air 02/22/18 04:00 98.1 64 14 102/53 (69) 97 02/22/18 03:42 50 02/22/18 00:00 Room Air 02/22/18 00:00 98.3 54 14 112/55 (74) 97 02/21/18 23:41 54 02/21/18 20:00 Room Air 02/21/18 20:00 97.2 67 16 108/59 (75) 96 02/21/18 19:48 81 02/21/18 16:00 98.1 64 16 121/71 (88) 96 02/21/18 16:00 65 02/21/18 12:00 61 02/21/18 12:00 97.6 57 18 157/83 (107) 95 02/21/18 11:27 97.9 62 14 134/63 (86) 95 I/O 02/21/18 02/21/18 02/21/18 02/22/18 02/22/18 02/22/18 07:00 15:00 23:00 07:00 15:00 23:00 Intake Total 0 ml 200 ml 570 ml Output Total 850 ml 650 ml 850 ml Balance -850 ml 200 ml -650 ml -280 ml Intake Oral 0 ml 570 ml Other 200 ml Output Urine Total 850 ml 650 ml 850 ml # Bowel Movements 0 1 (Kendal Carr MD R3) Result Diagram: 02/22/18 0505 02/22/18 0505 Objective Remarks GEN: Well-developed, well-nourished patient. No acute distress. Sitting up comfortably in bed. CV: Regular rate and rhythm without obvious murmurs LUNGS: Clear to auscultation bilaterally. Normal respiratory effort. No wheezes , rales, rhonchi. GI: Soft, nontender, nondistended. No palpable masses. NEURO/PSYCH: Awake, alert. Appropriate insight and judgment. Normal speech (Kendal Carr MD R3) A/P Assessment and Plan 62-year-old male with history of CABG x4 in 2013, HTN, and hyperlipidemia presented to the ED with substernal chest pain. Found to be Hemoccult positive. Recently underwent catheterization which shows significant stenosis in the distal LAD and other coronaries. Cardiology and GI consulted for recommendations. Pt underwent EGD on 02/21 which showed small ulcer. Patient currently without any pain and was stable hemoglobin. Discharge Planning Okay to be discharged from cardiac standpoint. Will be touching base with GI in regards to antiplatelets and blood thinners as patient will be getting another cardiac surgery once patient has healed. Anticipate discharge today dw Dr. Dago Gilmore, cardiology (Kendal Carr MD R3) Attending Attestation Patient seen and examined. Case reviewed and discussed with the resident team. Agree with plan of care as discussed with me and documented in the resident note. had discussion about his stent placement. he had bypass but has sxs from his lummi vessel. explained that he needs to be on anticoagulation for months afterwards and that he can bleed from any ulcers so it makes sense to wait until he was out of danger from a GI bleed to get his stent. he understands this and agrees (Ailyn Loza MD) Problem List: (1) Gastric ulcer ICD Codes: K25.9 - Gastric ulcer, unspecified as acute or chronic, without hemorrhage or perforation Plan: Hx significant for melena. Hx of chronic NSAIDs use. Hemoccult positive. H&H slowly downtrending but patient clinically stable. GI consulted: appreciate recs * EGD 02/21/2018: small ulcer at gastroesophageal junction. Small erosions found in the gastric antrum. * continue PPI, avoid NSAIDs Celiac panel ordered: pending (2) Substernal chest pain ICD Codes: R07.2 - Precordial pain Status: Resolved Plan: Resolved-etiology GI related (see details below) -ACS eval negative Patient presented with acute substernal chest pain. History of CABG 4. Diagnostic cath performed [address] Gilmore. Left main distally occluded 99%. Patient was scheduled to have angioplasty with stents on 18th of this month. This procedure is now on hold until cleared by GI as patient will require anticoagulation. 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 at bedtime (5) Hypertension ICD Codes: I10 - Hypertension Status: Acute Plan: Continue metoprolol 25 mg p.o. twice daily (6) Elevated serum creatinine ICD Codes: R79.89 - Other specified abnormal findings of blood chemistry Status: Resolved Plan: Resolved Creatinine of 1.42 on admission-careful with contrast and nephrotoxins Continue to monitor (7) Nutrition, metabolism, and development symptoms ICD Codes: R63.8 - Other symptoms and signs concerning food and fluid intake Plan: Diet: Heart healthy diet Fluids: tolerating PO Vitals every 4h, monitor I's and O's DVT ppx: SCDs Case Management consulted (Kendal Carr MD R3) Problem Qualifiers (1) Gastric ulcer: Qualified Codes: K25.3 - Acute gastric ulcer without hemorrhage or perforation Kendal Carr MD R3 Feb 22, 2018 10:07 Ailyn Loza MD Feb 23, 2018 10:01
[2018-02-22] MEDS ORDERED: PROT40TA PO (11:06)
--- NOTE | 2018-02-22 11:09 | HHI.DCPOC ---
Discharge Care Plan Diagnosis: (1) Gastric ulcer (2) Substernal discomfort (3) Elevated serum creatinine (4) Coronary artery disease Goals to Promote Your Health * To prevent worsening of your condition and complications * To maintain your health at the optimal level Directions to Meet Your Goals Take your medications as prescribed Follow your dietary instruction Follow activity as directed Keep your appointments as scheduled Take your immunizations and boosters as scheduled If your symptoms worsen call your PCP, if no PCP go to Urgent Care Center or Emergency Room Smoking is Dangerous to Your Health. Avoid second hand smoke Call the 24-hour hour crisis hotline for domestic abuse at Kendal Carr MD R3 Feb 22, 2018 11:09
--- NOTE | 2018-02-22 11:41 | HHI.GIFU ---
Subjective Remarks Pt sitting in bedside chair Denies any epigastric pain Denies nausea, vomiting No BM since EGD (Shannan Lira) Objective Vitals I&O Vital Signs Date Time Temp Pulse Resp B/P (MAP) Pulse Ox O2 Delivery O2 Flow Rate FiO2 02/22/18 08:08 98.2 55 17 104/59 (74) 97 02/22/18 08:00 53 02/22/18 07:00 Room Air 02/22/18 04:00 Room Air 02/22/18 04:00 98.1 64 14 102/53 (69) 97 02/22/18 03:42 50 02/22/18 00:00 Room Air 02/22/18 00:00 98.3 54 14 112/55 (74) 97 02/21/18 23:41 54 02/21/18 20:00 Room Air 02/21/18 20:00 97.2 67 16 108/59 (75) 96 02/21/18 19:48 81 02/21/18 16:00 98.1 64 16 121/71 (88) 96 02/21/18 16:00 65 02/21/18 12:00 61 02/21/18 12:00 97.6 57 18 157/83 (107) 95 I/O 02/21/18 02/21/18 02/21/18 02/22/18 02/22/18 02/22/18 06:59 14:59 22:59 06:59 14:59 22:59 Intake Total 0 ml 200 ml 570 ml Output Total 850 ml 650 ml 850 ml Balance -850 ml 200 ml -650 ml -280 ml Intake Oral 0 ml 570 ml Other 200 ml Output Urine Total 850 ml 650 ml 850 ml # Bowel Movements 0 1 Laboratory Laboratory Tests Test 02/22/18 05:05 White Blood Count 7.5 Red Blood Count 3.69 Hemoglobin 11.6 Hematocrit 32.6 Mean Corpuscular Volume 88.5 Mean Corpuscular Hemoglobin 31.5 Mean Corpuscular Hemoglobin Concent 35.6 Red Cell Distribution Width 12.9 Platelet Count 164 Mean Platelet Volume 7.8 Neutrophils (%) (Auto) 68.2 Lymphocytes (%) (Auto) 18.6 Monocytes (%) (Auto) 6.0 Eosinophils (%) (Auto) 6.4 Basophils (%) (Auto) 0.8 Neutrophils # (Auto) 5.1 Lymphocytes # (Auto) 1.4 Monocytes # (Auto) 0.5 Eosinophils # (Auto) 0.5 Basophils # (Auto) 0.1 CBC Comment DIFF FINAL Differential Comment Blood Urea Nitrogen 10 Creatinine 1.21 Random Glucose 89 Calcium Level 7.7 Sodium Level 143 Potassium Level 3.5 Chloride Level 110 Carbon Dioxide Level 23.1 Anion Gap 10 Estimat Glomerular Filtration Rate 61 Imaging Last Impressions Chest X-Ray 02/18/18 2302 Signed Impressions: CONCLUSION: No active disease. Postoperative CABG. Physical Exam HEENT: Normocephalic; atraumatic CHEST: Even/unlabored CARDIAC: RRR ABDOMEN: Soft, nondistended, nontender, bowel sounds active EXTREMITIES: No clubbing, cyanosis, or edema. SKIN: Normal; no rash; no jaundice MEDICAL PATHOLOGY TEACHER: Alert and oriented times three. (Shannan Lira) Assessment and Plan Plan Assessment: - Epigastric pain etiology cardiac vs noncardiac S/P EGD --> Small ulcer was found at the GE junction, biopsy. Erythematous gastritis in the entire examined stomach. Multiple small erosions were found in the gastric antrum, multiple biopsies. Normal duodenal mucosa in the duodenal bulb, 2nd part of the duodenum, and 3rd part of the duodenum. H/H stable overnight Pt tolerating diet Daughter has requested celiac disease work up Plan Heart healthy diet Protonix EGD biopsy pending Celiac disease panel- can follow up outpatient Our service will sign off, please reconsult as needed Have pt follow up with GI after DC Patient has been seen and examined by myself and Dr. Sherman and this note is written on his behalf (Shannan Lira) Physician Comments Agree with above assessment and plan. Needs out patient follow up. Please notify us if needed again. (Jenny Sherman MD) Shannan Lira Feb 22, 2018 11:41 Jenny Sherman MD Feb 22, 2018 12:00
[2018-02-22 14:21] LABS: TRANSGLUTAMINASE IGA AB 1.4 U/mL; TRANSGLUTAMINASE IGG AB 2.5 U/mL
[2018-02-22] MEDS ORDERED: ASPI-516 CHEW (15:26)
--- NOTE | 2018-02-22 15:27 | HHI.DS ---
Discharge Summary Admission Date Feb 19, 2018 at 09:38 Discharge Date: Feb 22, 2018 Admitting Diagnosis (1) Gastric ulcer Plan: Hx significant for melena. Hx of chronic NSAIDs use. Hemoccult positive. H&H slowly downtrending but patient clinically stable. GI consulted: romelia fuller * EGD 02/21/2018: small ulcer at gastroesophageal junction. Small erosions found in the gastric antrum. * continue PPI, avoid NSAIDs Celiac panel ordered: pending ICD Codes: K25.9 - Gastric ulcer, unspecified as acute or chronic, without hemorrhage or perforation (2) Substernal chest pain Plan: Resolved-etiology GI related (see details below) -ACS eval negative Patient presented with acute substernal chest pain. History of CABG 4. Diagnostic cath performed [address] Gilmore. Left main distally occluded 99%. Patient was scheduled to have angioplasty with stents on of this month. This procedure is now on hold until cleared by GI as patient will require anticoagulation. ICD Codes: R07.2 - Precordial pain Status: Resolved (3) Coronary artery disease Plan: Continue Plavix 75mg PO daily, Imdur 30mg PO daily Patient's call box wirer, Dr. Gilmore ICD Codes: I25.10 - Coronary artery disease Status: Chronic (4) Hyperlipidemia Plan: Continue atorvastatin 40 mg p.o. at bedtime ICD Codes: E78.5 - Hyperlipidemia Status: Acute (5) Hypertension Plan: Continue metoprolol 25 mg p.o. twice daily ICD Codes: I10 - Hypertension Status: Acute (6) Elevated serum creatinine Plan: Resolved Creatinine of 1.42 on admission-careful with contrast and nephrotoxins Continue to monitor ICD Codes: R79.89 - Other specified abnormal findings of blood chemistry Status: Resolved (7) Nutrition, metabolism, and development symptoms Plan: Diet: Heart healthy diet Fluids: tolerating PO Vitals every 4h, monitor I's and O's DVT ppx: SCDs Case Management consulted ICD Codes: R63.8 - Other symptoms and signs concerning food and fluid intake Brief History 62-year-old male with history of CABG x4 in 2013, HTN, and hyperlipidemia presented to the ED with substernal chest pain. Patient states that he ate a stuffed pepper around 6 PM. He states that he was sitting on the sofa when he started to experience substernal chest pain around 10 PM. He rates the pain as 10/10 with no radiation to his left jaw or left arm. He states that the pain lasted for 1 hour. He states that the pain subsided when he arrived in the ED before receiving medications. He currently has no active chest pain. He was unsure if this was related to his acid reflux or similar to his angina in the past. He called his son to take him to the ED. He denies palpitations, diaphoresis, nausea/ vomiting, shortness of breath, abdominal pain, and fevers. Patient states that 2 days ago he also started having substernal chest pain that woke him up. He states that last for several hours. He initially thought it was related to acid reflux and he took Pepto-Bismol without relief. He also had one episode of nonbloody, nonbilious vomiting. Patient had a diagnostic cardiac cath 2 days ago by his call box wirer, Dr. Gilmore. Patient was found to have left main coronary artery disease, with 50% stenosis throughout and distally 99% stenosis. Patient states that he was scheduled for angioplasty and stents on the of this month. Patient states that he was taking a daily aspirin. However, he was recently switched to Plavix. He states that he picked up his Plavix prescription today but has not yet started the medication. Patient also states that he has chronic left shoulder pain. He states that he has been taking Advil PM about 4 tablets/day, unknown dose, for the past 6 months. Upon review of systems, patient states that he has been experiencing black tarry stools. He denies any weight loss and fatigue. Patient states that he has never had a endoscopy/colonoscopy. CBC/BMP: 02/22/18 0505 02/22/18 0505 Significant Findings Laboratory Tests Test 02/20/18 06:12 02/21/18 04:30 02/22/18 05:05 02/22/18 12:25 Red Blood Count 4.10 MIL/MM3 (4.50-5.90) 3.96 MIL/MM3 (4.50-5.90) 3.69 MIL/MM3 (4.50-5.90) Hematocrit 36.7 % (39.0-51.0) 35.2 % (39.0-51.0) 32.6 % (39.0-51.0) Neutrophils (%) (Auto) 71.3 % (16.0-70.0) Eosinophils (%) (Auto) 5.1 % (0.0-4.0) 7.3 % (0.0-4.0) 6.4 % (0.0-4.0) Calcium Level 7.8 MG/DL (8.5-10.1) 7.9 MG/DL (8.5-10.1) 7.7 MG/DL (8.5-10.1) Chloride Level 111 MEQ/L (98-107) 114 MEQ/L (98-107) 110 MEQ/L (98-107) Estimat Glomerular Filtration Rate 62 ML/MIN (>89) 68 ML/MIN (>89) 61 ML/MIN (>89) Hemoglobin 12.4 GM/DL (13.0-17.0) 11.6 GM/DL (13.0-17.0) Eosinophils # (Auto) 0.5 TH/MM3 (0-0.4) Imaging Last Impressions Chest X-Ray 02/18/18 7592 Signed Impressions: CONCLUSION: No active disease. Postoperative CABG. PE at Discharge GEN: Well-developed, well-nourished patient. No acute distress. Sitting up comfortably in bed. CV: Regular rate and rhythm without obvious murmurs LUNGS: Clear to auscultation bilaterally. Normal respiratory effort. No wheezes , rales, rhonchi. GI: Soft, nontender, nondistended. No palpable masses. NEURO/PSYCH: Awake, alert. Appropriate insight and judgment. Normal speech Hospital Course 62-year-old male with history of CABG 4, HTN, HLD, CAD. Admitted for chest pain after a recent cardiac catheterization on 02/15. ACS evaluation was negative but patient was found to have Hemoccult positive stools. GI was consulted and performed EGD which found a small ulcer at the gastroesophageal junction as well as small erosions in the gastric antrum. Hemoglobin was stable throughout hospitalization but slowly down trended. Will repeat H&H as an outpatient. Celiac panel was also ordered due to family history of celiac disease. Patient's chest pain resolved the day of admission. Patient treated with PPI. I (Dr. Tan) discussed with GI specialist Dr. Garcia about aspirin use and the need for further cardiac intervention that will require anticoagulation. Dr. Garcia stated that patient's bleed risk was low due to the characteristics of the ulcer seen on EGD. Recommended waiting until patient was seen back in GI officein about a week as an outpatient for review of biopsies prior to conducting further cardiac procedure. This was also communicated back with patient's call box wirer Dr. Gilmore. Patient was discharged in stable condition and recommended to follow-up with PCP, GI, cardiology. Pt Condition on Discharge: Stable Discharge Disposition: Discharge Home Discharge Instructions DIET: Follow Instructions for: Heart Healthy Diet Activities you can perform: Regular-No Restrictions Follow up Referrals: Appointment for Follow Up @ DR. GARCIA Cardiology - 2 Weeks with Dominic Gilmore MD Cardiology @ Gastroenterology - 2 Weeks with Jenny Garcia MD PCP Follow-up - 1 Week with Kendal Carr MD R3 PCP Follow-up @ DR TAN New Orders: HGB & HCT - 2-3 Days New Medications: Aspirin (Aspirin) 81 Mg Chew 81 MG CHEW DAILY, #30 TAB 0 Refills Pantoprazole (Protonix) 40 Mg Tab 40 MG PO DAILY for Ulcer Prevention, #30 TAB 0 Refills Continued Medications: Atorvastatin (Atorvastatin) 40 Mg Tab 40 MG PO HS for Cholesterol Management, #30 TAB 3 Refills Clopidogrel (Clopidogrel) 75 Mg Tab Unknown Dose PO DAILY for Blood Clot Prevention, #30 TAB 0 Refills Isosorbide Mononitrate ER (Isosorbide Mononitrate ER) 30 Mg Amy 30 MG PO DAILY for Prevent Chest Pain, #30 TAB 0 Refills Lorazepam (Ativan) 0.5 Mg Tab 0.5 MG PO Q6H PRN for ANXIETY AND/OR AGITATION, #30 TAB 0 Refills Metoprolol Tartrate (Metoprolol Tartrate) 25 Mg Tab 25 MG PO BID, #60 TAB 0 Refills Multiple Vitamin (Multiple Vitamin) 1 Tab 1 TAB PO DAILY for Nutritional Supplement, TAB 0 Refills Nitroglycerin SL (Nitrostat SL) 0.4 Mg Subl 0.4 MG SL DIRECTED PRN for CHEST PAIN, #100 TAB.SL 0 Refills 1 tablet under the tongue as needed for chest pain. Repeat every 5 minutes for a total of 3 DOSES or call 911 if NO relief. Tadalafil (Cialis) 10 Mg Tab 10 MG PO DAILY PRN for Erectile Dysfunction, #30 TAB 0 Refills Do not exceed 1 dose/day. Discontinued Medications: Aspirin (Aspirin) 325 Mg Tab 325 MG PO DAILY, #30 TAB 0 Refills Ibuprofen-Diphenhydramine (Advil Pm) 200-38 Mg Tab 1 TAB PO HS PRN for PAIN/SLEEP, TAB 0 Refills Kendal Carr MD R3 Feb 22, 2018 15:27
[2018-02-23] MEDS ORDERED: PANTOPRAZOLE SOD 40 MG DELAYED RELEASE TAB PO SCH (09:00)
== END 2018-02-22 16:30 | disposition home or self-care (01) | DRG 384 ==
LOC: NEPE 22:47 → NEDA 02-19 01:39 → NEPHCDU 02-19 03:31 → OBSVTOIN 02-19 09:38 → N04B 02-20 21:44
PROVIDERS: ADMIT Family Medicine; ATTEND Family Medicine
PROC: 0DB68ZX Excision of Stomach, Via Natural or Artificial Opening Endoscopic, Diagnostic (ICD-10-PCS; 2018-02-21)
PROC: 0DB48ZX Excision of Esophagogastric Junction, Via Natural or Artificial Opening Endoscopic, Diagnostic (ICD-10-PCS; principal; 2018-02-21 10:58)
DX: K25.9 Gastric ulcer, unspecified as acute or chronic, without hemorrhage or perforation (principal); I10 Essential (primary) hypertension; K29.70 Gastritis, unspecified, without bleeding; R19.5 Other fecal abnormalities; E78.5 Hyperlipidemia, unspecified; I25.119 Atherosclerotic heart disease of native coronary artery with unspecified angina pectoris; Z95.1 Presence of aortocoronary bypass graft; R79.89 Other specified abnormal findings of blood chemistry; G89.29 Other chronic pain; M25.512 Pain in left shoulder; Z79.1 Long term (current) use of non-steroidal anti-inflammatories (NSAID)
CPT/HCPCS: 71046; 80048; 80053; 80307; 82550; 82552; 82784; 83516; 83735; 84484; 85025; 85610; 85730; 88305; 88312; 93005; C9113; J7030

== ENCOUNTER 2018-05-09 08:21 | Observation (INO) ==
[2018-05-09 09:17] LABS: Baso # (Auto) 0.1 th/mm3 (0.0-0.2); Baso % (Auto) 1.2 % (0.0-2.0); Eos # (Auto) 0.5 th/mm3 (0.0-0.4); Eos % (Auto) 6.2 % (0.0-4.0); Hematocrit 43.1 % (39.0-51.0); Hemoglobin 15.1 gm/dL (13.0-17.0); Lymph # (Auto) 1.6 th/mm3 (1.0-4.8); Mean Corpuscular Hemoglobin 30.4 pg (27.0-34.0); Mean Corpuscular Volume 86.9 fL (80.0-100.0); Mean Platelet Volume 7.2 fL (7.0-11.0); Mono # (Auto) 0.6 th/mm3 (0.0-0.9); Mono % (Auto) 8.8 % (0.0-8.0); Neut # (Auto) 4.6 th/mm3 (1.8-7.7); Neut % (Auto) 61.8 % (16.0-70.0); Platelet Count 213 th/mm3 (150-450); Red Blood Count 4.97 mil/mm3 (4.50-5.90); Red Cell Distribution Width 12.8 % (11.6-17.2); White Blood Count 7.4 th/mm3 (4.0-11.0)
[2018-05-09 09:28] LABS: Activated Partial Thrombo Time 25.4 sec (24.3-30.1); Prothrombin Time 10.5 sec (9.8-11.6)
[2018-05-09] MEDS ORDERED: Sod Chloride 0.9% Inj 1,000 ML IV.SIG SCH (09:30)
[2018-05-09] MEDS ORDERED: Aspirin 325 MG Tablet PO ONE (09:30)
[2018-05-09 09:33] LABS: Calcium 8.5 mg/dL (8.5-10.1); Carbon Dioxide 25.7 meq/L (21.0-32.0); Potassium 4.2 meq/L (3.5-5.1)
[2018-05-09] MEDS ORDERED: Heparin/NS PF Inj 1,500 ML ONE (10:16)
[2018-05-09] MEDS ORDERED: Heparin 10,000 UNITS/10 ML Vial (for IV use) ONE ×2 (10:17→10:54)
[2018-05-09] MEDS ORDERED: fentaNYL Citrate Inj 100 MCG/2 ML Ampul ONE (10:18)
--- NOTE | 2018-05-09 10:27 | MH ---
cc: Dominic Gilmore MD DATE OF ADMISSION: 05/09/2018 ADMISSION DIAGNOSES: 1. Class III angina pectoris with known coronary artery disease. 2. Hypertension. 3. Hyperlipidemia. CHIEF COMPLAINT: Chest heaviness. HISTORY OF PRESENT ILLNESS: Anibal Merino Sr. is a 62-year-old man with known coronary artery disease. He underwent a cardiac catheterization on 03/09/2014 with severe coronary disease. He underwent bypass surgery with a left internal mammary graft to the LAD, vein graft to the first obtuse marginal branch, vein graft to the second obtuse marginal branch, and a vein graft to the right coronary artery. He had a nuclear stress test showing moderate anterior ischemia. He underwent a repeat catheterization 02/15/2018. Left main coronary artery had a 99% distal stenosis. The LAD has 90% proximal stenosis before the diagonal branch. Then there is a long zone of mid LAD disease followed by a left internal mammary open to the distal LAD, but the left internal mammary does not provide adequate flow back to the diagonal. Circumflex artery had 80%-90% proximal stenosis. There is a patent vein graft to the first limb of the obtuse marginal branch and a vein graft to the second division of the obtuse marginal branch. Right coronary artery is totally occluded with a widely patent vein graft to the distal right coronary artery. We were going to try medical management. He got better with Imdur, but he is still having chest heaviness with ordinary exertion and has decided he would like revascularization for relief of symptoms. PAST MEDICAL HISTORY: Includes coronary artery disease, hypertension and hyperlipidemia. He had some GI problems. He has undergone scope, endoscopy. He is now cleared for cardiac procedures. PAST SURGICAL HISTORY: Includes his catheterization and bypass surgery. MEDICATIONS: Include: 1. Aspirin 325 mg daily. 2. Clopidogrel 75 mg daily. 3. Imdur 30 mg daily. 4. Metoprolol 12.5 mg p.o. b.i.d. 5. Atorvastatin 40 mg daily. ALLERGIES: NONE KNOWN. FAMILY HISTORY: Positive for CAD, hypertension, type 2 diabetes. SOCIAL HISTORY: He has never smoked. 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 He is . REVIEW OF SYSTEMS: Noncontributory. PHYSICAL EXAMINATION: GENERAL: Well-developed, well-nourished white male, in no acute distress. VITAL SIGNS: Charted. HEENT: Unremarkable. NECK: No JVD. No bruits. CHEST: Clear to auscultation. CARDIOVASCULAR: Normal first and second heart sounds, regular rate and rhythm. No murmurs or gallops. ABDOMEN: Soft, nontender. EXTREMITIES: No clubbing, cyanosis or edema. Peripheral pulses are intact. NEUROLOGIC: Alert and oriented and nonfocal. DIAGNOSTIC DATA: His EKG today shows normal sinus rhythm, slight first-degree AV block, no acute ST-T wave changes. LABORATORY DATA: His laboratories show hematocrit of 43.1, creatinine 1.24, BUN 15, GFR 59. IMPRESSION: A 62-year-old male with known coronary disease, having class III anginal pectoris. PLAN: Plan is to revascularize the distal left main and proximal LAD to improve flow to the diagonal and am planning to do this with Rotablator with a temporary pacer. Informed consent has been obtained. MD JEFF Adams/ricky , 10:11 AM , 10:20 AM
[2018-05-09] MEDS ORDERED: Heparin/NS PF Inj 500 ML ONE ×2 (10:34→11:11)
[2018-05-09] MEDS ORDERED: Misc Info for Pharmacy OTHER STA (13:18)
[2018-05-09] MEDS ORDERED: oxyCODONE/Acetaminophen 10/325 Tablet PO PRN (13:18)
[2018-05-09] MEDS ORDERED: Acetaminophen 325 MG Tablet PO PRN (13:18)
[2018-05-09] MEDS ORDERED: Morphine Inj 4 MG/ML Vial IV.PUSH PRN (13:18)
--- NOTE | 2018-05-09 13:18 | ECG ---
Date Performed: 05/09/2018 Time Performed: 09:16:36 PTAGE: 62 years EKG: Sinus rhythm with PAC(s) with borderline 1st degree A-V block. Septal T wave changes are nonspecific Borderline E CG PREVIOUS TRACING : 02/19/2018 12.46 Since the previous tracing, no significant change noted DOCTOR: Erendira Guzman Interpretating Date/Time 05/09/2018 13:16:12
--- NOTE | 2018-05-09 13:27 | CATHPROC ---
Knowrom HIS Report Study Information Study Number Admission Scheduled Start Study Start [id number] May 09 2018 8:21AM 05/09/2018 May 09 2018 10:13AM [place] [facility] Electrophysiology Study Admit Source Facility Department Other [facility] - Shower Screen Installer Physician and Clinical Staff Initial Dominic [place] DirectorMiladis Zhang,RN County DirectorRudolph Schultz,JACK Recorder Erlinda Shay,RT(R) Scrub Cruz WilliamRT(R) Procedures Performed Procedure Location (Site) Vessel Name Coronary Angiograms LCA Left Coronary Drug Eluting Inflatio LAD Prox Left Coronary Drug Eluting Inflatio Lft Main Dist Left Coronary L Heart Cath Pacemaker Temp Fem Vein (right) Femoral Vein PTCA Lft Main Dist Left Coronary Rotablator Lft Main Dist Left Coronary Wire insertion Fem Art (right) Femoral Art Equipment Time Blue Print Control Clerk Description Size Mfg Part Number Used/Scraped [id number] 12:57 [employer] WIRE, ASAHI PROWATER 180CM 180CM Used *[id number] WIRE, BALANCE MIDDLEWEIGHT [id number] 12:40 [employer] 190CM Used 190CM *[id number] WIRE, BALANCE MIDDLEWEIGHT [id number] 11:47 [employer] 300CM Used 300CM *[id number] WIRE, WHISPER W/HYDROCOAT [id number] 11:36 [employer] 300CM Used 300CM *[id number] 10:43 RAINES VARELA PACING CATHETER J CURVE FR 5 Used *[id number] TRANSDUCER, TRUWAVE [id number] 10:16 RAINES VARELA * Used W/STOCKCOCK *[id number] 10:47 [employer] CATHETER, FR1.25 ROTA-LINK FR 1.25 Used *[id number] 10:44 [employer] WIRE, ROTA-WIRE FLOPPY 330CM 330CM Used *[id number] *[id number] 11:13 Know[employer] WIRE, CHOICE PT FLOPPY 300CM 300CM Used *[id number] 10:16 Wan Shidao management BLANKET,WARM AIR CCL * Used *[id number] 10:16 Wan Shidao management PACK, CCL CUSTOM * Used *[id number] 10:16 [employer] PACER PEN, SKIN DUAL W/ RULER * Used *[id number] BALLOON, 1.25 X 6MM SPRINTER [id number] 11:27 [employer] 6MM Used LEGEND OTW *[id number] BALLOON, 2.5 X 15MM NC [id number] 12:41 [employer] 15MM Used EUPHORA *[id number] BALLOON, 3.0 X 15MM NC [id number] 12:55 [employer] 15MM Used EUPHORA *[id number] BALLOON, 3.5 X 20MM NC [id number] 13:05 [employer] 20MM Used EUPHORA *[id number] [id number] 12:47 [employer] STENT, 2.5 15MM RAVEN 2.5 15MM Used *[id number] 12:52 [employer] STENT, 3.0 22MM RAVEN 3.0 22MM Used *0062592 [id number] 10:22 [employer] MEDICAL 30 MIO INDEFLATOR Used *6093212 [id number] 10:21 [employer] MEDICAL SHEATH, FR7.5 PRELUDE 11CM FR 7.5 11CM Used [id number] 10:16 [employer] WIRE, 3MMJ .035 180CM 180CM Used *[id number] 10:16 NAMIC MANIFOLD, 4 PORT * Used *3984037 10:16 NYCOMED OMNIPAQUE, 350 MG, 150ML 150ML [id number] Used [id number] 10:21 [employer] MEDICAL SHEATH, FR6 TERUMO (10CM) FR 6 Used *[id number] Equipment Model, Serial, Lot Number and Expiration Data Description Model Number Serial Number Lot Number Expiration Date BALLOON, 2.5 X 15MM NC [id number] 03-20-2019 EUPHORA BALLOON, 3.5 X 20MM NC [id number] 01-25-2020 EUPHORA STENT, 2.5 15MM RAVEN [id number] 09-17-2019 STENT, 3.0 22MM RAVEN [id number] 12-20-2019 WIRE, CHOICE PT FLOPPY 300CM [id number] 07-19-2019 WIRE, ROTA-WIRE FLOPPY 330CM [id number] 08-12-2018 History: Current Medications Medication Dosage/Unit Route Frequency Last Date/Time Taken Statins (any) ATIVAN CIALIS ASA Imdur LOPRESSOR NTG SL PLAVIX History: Allergies Allergy Reaction No Known Allergies History: Risk Factors Family History of Hypertension Dyslipidemia Previous [facility] Previous Heart Failure Premature CAD Yes Yes Yes No No Prior Valve Prior PCI Prior CABG Prior CABGDate Surgery No No Yes 03/09/2014 Cerebrovascular Peripheral Artery Chronic Lung On Dialysis Diabetes Disease Disease Disease No No Yes No No History: Symptoms/Diagnosis Selection Items Chest pain History: CV Disease Selection Items Known CAD History: Stress Tests Stress or Imaging Studies Performed Yes Standard Exercise Stress Test No Stress Echo No Stress Test SPECT Stress Test SPECT Result Stress Test SPECT Ischemia Risk/Extent Yes Positive Intermediate Stress Test CMR No Cardiac CTA Coronary Calcium Score No No History: Other Current Smoker No Labs Hgb (g/dl) Hct (%) WBC (l/cumm) Platelets (thousands) 11.60-17.00 35.00-51.00 4.00-11.00 150.00-450.00 15.1 43.1 7.4 213 Glucose (mg/dl) BUN (mg/dl) Creatinine (mg/dl) BUN:Creatinine (1:x) 74.00-106.00 7.00-18.00 0.50-1.30 10.00-20.00 103 15 1.2 12.5 Na (meq/l) K (meq/l) 136.00-145.00 3.50-5.10 141 4.2 INR (PTT:PT) 0.90-1.10 1 CPK-MB (ng/ML) 0.50-3.60 Not Drawn Medication Medication Total Dose (Bolus/Oral) Medication Total Dosage/Unit 1% XYLOCAINE 20 mL ANGIOMAX BOLUS 12.9 mL FENTANYL 50 mcg OXYGEN 2 l/min PLAVIX 300 mg VERSED 4 mg Medications (Bolus/Oral) Medication Time Given Dosage/Unit Administered By Reason VERSED 05/09/2018 10:48:04 AM 1 mg Rudolph Azul 1 mg VERSED given in lab by Rudolph Azul RN in Left Antecubital via Peripheral IV. Ordered by Dominic Wing. FENTANYL 05/09/2018 10:49:23 AM 50 mcg Rudolph Azul 50 mcg FENTANYL given in lab by Rudolph Azul, JACK in Left Antecubital via Peripheral IV. Ordered by Dominic Gilmore. OXYGEN 05/09/2018 10:49:30 AM 2 l/min Rudolph Azul 2 l/min OXYGEN given in lab by Rudolph Azul RN via Nasal. VERSED 05/09/2018 10:50:58 AM 1 mg Ferlitto, Rudolph 1 mg VERSED given in lab by Rudolph Azul RN in Left Antecubital via Peripheral IV. Ordered by Dominic Wing. 1% XYLOCAINE 05/09/2018 10:51:15 AM 20 mL Dominic Gilmore 20 mL 1% XYLOCAINE given in lab by Dominic Gilmore in Right Groin via Subcutaneous. ANGIOMAX BOLUS 05/09/2018 11:02:27 AM 12.9 mL Miladis Huggins 12.9 mL ANGIOMAX BOLUS given in lab by Miladis Huggins RN in Left Antecubital via Peripheral IV. Ord ered by Dominic Gilmore. VERSED 05/09/2018 12:01:54 PM 1 mg Miladis Huggins 1 mg VERSED given in lab by Miladis Huggins RN in Right Antecubital via Peripheral IV. Ordered by Dominic Bustamante. VERSED 05/09/2018 12:18:03 PM 1 mg Ferlitto, Rudolph 1 mg VERSED given in lab by Rudolph Azul RN via Peripheral IV. Ordered by Dominic Gilmore. PLAVIX 05/09/2018 1:13:45 PM 300 mg Rudolph Azul 300 mg PLAVIX given in lab by Rudolph Azul RN via Oral. Ordered by Dominic Gilmore. Medication (Drip) Medication Time Given Dosage/Unit Concentration/Unit Diluent (ml) Solution ANGIOMAX DRIP 05/09/2018 11:04:07 AM 1.748 mg/kg/hr 250 mg 50 NaCl .9 1.748 mg/kg/hr ANGIOMAX DRIP given in lab by Miladis Huggins RN in Left Antecubital via Peripheral I V. Pump/Drip Flow = 30.1 ml/hr using NaCl .9 with a concentration of 250 mg in 50 ml. Ordered by Dominic Gilmore. IV Solutions 05/09/2018 10:17:39 AM 50 mL (IV) NaCl .9 IV Solutions given in lab by Rudolph Azul RN in Right Antecubital via Peripheral IV. Pump/Drip Cody w using NaCl .9. Initial Case Assessment Cardiovascular NIBP Chest Pain 129/71 0 Edema Present Skin color Skin None Normal Warm Dry Circulatory - Right Pulses Dorsalis Pedis Femoral 1 2 Scale (0,1,2,3,4,d) Circulatory - Left Pulses Dorsalis Pedis Femoral 1 2 Scale (0,1,2,3,4,d) Neurological State Oriented to time-place- Alert Moves all extremities person Respiration - General SpO2 (%) 97 Final Case Assessment Cardiovascular HR NIBP Chest Pain 58 129/71 0 Edema Present Skin color Skin None Normal Warm Dry Circulatory - Right Pulses Dorsalis Pedis Femoral 1 2 Scale (0,1,2,3,4,d) Circulatory - Left Pulses Dorsalis Pedis Femoral 1 2 Scale (0,1,2,3,4,d) Neurological State Oriented to time-place- Alert Moves all extremities person Respiration - General Respiration Rate SpO2 (%) (B/min) 8 97 Chronological Log Time Study Chronological Log 10:13:10 Patient arrived via Bed. 10:13:16 Patient Name, D.O.B, / Armband Verified By R.N. 10:17:20 Consent signed by the physician and the patient and verified by the Shower Screen Installer staff. 10:17:21 Pre-op and post- op instructions given; patient acknowledges understanding of instructions. 10:17:22 Verbal Stimulation=2 Physical Stimulation=2 Airway=2 Respiration=2 TOTAL=8. (0=absent, 1=li mited, 2=present) 10:17:27 Patient has been NPO for More than 6Hrs. 10:17:27 Skin Breakdown- none per patient 10:17:29 Patient Warmer Placed on the Table. 10:17:37 Disposable Defibrillator Pads Placed On Patient. 10:17:37 Edyta Prominences Protected 10:17:38 A # 20 IV was noted in the Antecubital (left). Grade = 0 10:17:38 A # 20 IV was noted in the Antecubital (right). Grade = 0 10:17:39 IV Solutions given in lab by Rudolph Azul RN in Right Antecubital via Peripheral IV. Pum p/Drip Flow using NaCl .9. Vitals capture started with the following parameters, Patient=Adult, Interval=5 min, Initial Pr zdenxl=170 mmHg, 10:17:40 Deflation Rate=5 mmHg, Cuff placed on Left Arm 10:17:43 History and physical on the chart or being dictated. Assessment: Initial Case, XNIH=661/71 mmhg, Chest Pain=0, Edema=None, Color=Normal, Skin = Warm , Dry Right Pulses: Rigoberto Ped=1, Femoral=2 10:17:44 Left Pulses: Rigoberto Ped=1, Femoral=2 Neurological: State=Alert, Ox3, GARCIA Respiration: SpO2=97 % 10:18:23 HR=69 bpm, RZPX=380/71 mmhg, SpO2=96.0 % 10:21:24 A # 20 IV was noted in the Antecubital (left). Grade = 0 10:23:20 HR=64 bpm, BLTM=284/77 mmhg, SpO2=94.0 %, Resp=8 B/min 10:25:37 Reference ECG taken 10:28:19 HR=62 bpm, FQWF=083/74 mmhg, SpO2=96.0 %, Resp=10 B/min 10:33:16 HR=64 bpm, PZIO=646/78 mmhg, SpO2=99.0 %, Resp=15 B/min 10:33:32 Bilateral groins prepped with 2% chlorhexidine, and draped after a 3 minute waiting time. 10:38:22 HR=63 bpm, KBDE=426/81 mmhg, SpO2=98.0 %, Resp=18 B/min 10:39:47 MD paged 10:39:50 Pressure channel 1 zeroed. 10:43:21 HR=62 bpm, CYQZ=049/83 mmhg, SpO2=99.0 %, Resp=10 B/min 10:43:33 MD arrived. 10:48:04 1 mg VERSED given in lab by Rudolph Azul, JACK in Left Antecubital via Peripheral IV. Order ed by Dominic Gilmore. 10:48:20 HR=63 bpm, FWZY=012/77 mmhg, SpO2=98.0 %, Resp=10 B/min 10:49:23 50 mcg FENTANYL given in lab by Rudolph Azul, RN in Left Antecubital via Peripheral IV. O rdered by Dominic Gilmore. Time Out. Correct patient, correct procedure, correct physician, labs, allergies, and equipment verified with laborer [employer] 10:49:28 team present. Fire risk assesment completed (see hard stop sheet for coding). Time Out Conc urred by MD and individual staff in procedure. 10:49:30 2 l/min OXYGEN given in lab by Rudolph Azul, RN via Nasal. 10:50:58 1 mg VERSED given in lab by Rudolph Azul, RN in Left Antecubital via Peripheral IV. Order ed by Dominic Gilmore. 10:51:11 Case Start 10:51:15 20 mL 1% XYLOCAINE given in lab by Dominic Gilmore in Right Groin via Subcutaneous. 10:52:34 Access site was Right Femoral Artery. A SHEATH, FR7.5 PRELUDE 11CM FR 7.5 11CM was advanced into the Fem Art (right) using the Percut aneous 10:52:38 technique. 10:53:23 HR=62 bpm, SGXW=507/68 mmhg, SpO2=98.0 %, Resp=11 B/min 10:54:23 Access site was Right Femoral Vein. 10:54:31 A SHEATH, FR6 TERUMO (10CM) FR 6 was advanced into the Fem Vein (right) using the Percutane ous technique. 10:55:51 A PACING CATHETER J CURVE FR 5 was advanced to the right ventricle. Rate = 40, Output = ~OU TPUT~, MA = 5. A XB 3.5 GUIDE CATHETER FR 7 was advanced over a wire. OMNIPAQUE, 350 MG, 150ML 150ML was used for 10:57:48 injections. 10:58:18 HR=59 bpm, MRVL=033/71 mmhg, LcL1=028.0 %, Resp=7 B/min 10:58:28 Wire removed Recorded Pressure: Ao, HR=60, Condition=Condition 1 10:59:18 (Aorta) Ao 106/63/82 10:59:48 The LCA was injected and visualized at various angles. OMNIPAQUE, 350 MG, 150ML 150ML used . 12.9 mL ANGIOMAX BOLUS given in lab by Miladis Huggins, JACK in Left Antecubital via Peripheral I V. Ordered by 11:02:27 Dominic Gilmore. 11:03:23 HR=59 bpm, JQDV=541/70 mmhg, SpO2=99.0 %, Resp=11 B/min 11:04:04 A WIRE, ROTA-WIRE FLOPPY 330CM 330CM was inserted via Fem Art (right). 1.748 mg/kg/hr ANGIOMAX DRIP given in lab by Miladis Huggins, JACK in Left Antecubital via Periph eral IV. Pump/Drip 11:04:07 Flow = 30.1 ml/hr using NaCl .9 with a concentration of 250 mg in 50 ml. Ordered by Gilmer Gilmore. 11:08:22 HR=62 bpm, GARG=650/72 mmhg, SpO2=99.0 %, Resp=16 B/min 11:10:57 Wire removed for reshaping 11:11:14 A WIRE, ROTA-WIRE FLOPPY 330CM 330CM was inserted via Fem Art (right). 11:13:19 HR=63 bpm, AQAZ=336/74 mmhg, OlX0=942.0 %, Resp=16 B/min 11:14:18 ROTO Wire removed 11:14:45 A WIRE, CHOICE PT FLOPPY 300CM 300CM was inserted via Fem Art (right). 11:18:24 HR=63 bpm, YVJL=463/74 mmhg, SpO2=99.0 %, Resp=10 B/min 11:19:26 Choice PT Wire removed for reshaping 11:20:20 A WIRE, CHOICE PT FLOPPY 300CM 300CM was inserted via Fem Art (right). 11:24:00 HR=61 bpm, NIVS=586/71 mmhg, ItF8=819.0 %, Resp=13 B/min A BALLOON, 1.25 X 6MM SPRINTER LEGEND OTW 6MM was inserted over WIRE, CHOICE PT FLOPPY 300CM 30 0CM via 11:27:24 the Fem Art (right). 11:28:24 HR=63 bpm, PJVB=373/76 mmhg, SpO2=99.0 %, Resp=15 B/min 11:33:25 HR=63 bpm, SIDE=171/75 mmhg, YfG5=681.0 %, Resp=12 B/min 11:36:06 The previous wire was exchanged for a WIRE, WHISPER W/HYDROCOAT 300CM 300CM. 11:38:24 HR=60 bpm, YLKO=227/73 mmhg, BfZ7=538.0 %, Resp=12 B/min 11:41:15 Whisper Wire removed for reshaping 11:41:39 A WIRE, WHISPER W/HYDROCOAT 300CM 300CM was inserted via Fem Art (right). 11:43:29 HR=59 bpm, ZJPX=914/66 mmhg, QrM9=934.0 %, Resp=13 B/min 11:47:54 Whisper Wire removed 11:48:04 A WIRE, BALANCE MIDDLEWEIGHT 300CM 300CM was inserted via Fem Art (right). 11:48:28 HR=59 bpm, JNLF=004/73 mmhg, FmM7=734.0 %, Resp=8 B/min 11:53:29 HR=61 bpm, NZHH=992/72 mmhg, JeM7=233.0 %, Resp=17 B/min 11:58:31 HR=60 bpm, XJIK=653/75 mmhg, BgA5=581.0 %, Resp=14 B/min 12:00:45 Interventional wire has crossed the lesion 12:01:54 1 mg VERSED given in lab by Miladis Huggins, JACK in Right Antecubital via Peripheral IV. Ord ered by Dominic Gilmore. 12:02:04 BMW Wire removed 12:02:09 A WIRE, ROTA-WIRE FLOPPY 330CM 330CM was inserted via Fem Art (right). 12:03:28 HR=59 bpm, ZVFS=586/78 mmhg, EvV3=626.0 %, Resp=14 B/min 12:05:27 ROTO Wire removed 12:06:01 A WIRE, CHOICE PT FLOPPY 300CM 300CM was inserted via Fem Art (right). 12:08:31 HR=58 bpm, JBPN=897/66 mmhg, FeR3=928.0 %, Resp=11 B/min 12:09:45 Choice PT Wire removed 12:10:40 A WIRE, ROTA-WIRE FLOPPY 330CM 330CM was inserted via Fem Art (right). 12:14:13 HR=61 bpm, DPQY=558/89 mmhg, GrL0=922.0 %, Resp=14 B/min 12:16:37 OTW Balloon Removed. 12:18:03 1 mg VERSED given in lab by Rudolph Azul, JACK via Peripheral IV. Ordered by Mando, Alfaro. A CATHETER, FR1.25 ROTA-LINK FR 1.25 was advanced throuogh the XB 3.5 GUIDE CATHETER FR 7 into the Fem Art 12:18:14 (right). 12:18:31 HR=64 bpm, KLXG=774/94 mmhg, ZtC6=846.0 %, Resp=10 B/min 12:23:34 HR=74 bpm, ZFTS=518/97 mmhg, PmA8=478.0 %, Resp=16 B/min A CATHETER, FR1.25 ROTA-LINK FR 1.25 was advanced through the XB 3.5 GUIDE CATHETER FR 7 over a WIRE, 12:24:36 ROTA-WIRE FLOPPY 330CM 330CM. After placement in the Lft Main Dist the rotoblator was set f rom ~HIRPM~,000 rpm to 145,000 rpm and was passed 1 times through the lesion. A CATHETER, FR1.25 ROTA-LINK FR 1.25 was advanced through the XB 3.5 GUIDE CATHETER FR 7 over a WIRE, 12:25:32 ROTA-WIRE FLOPPY 330CM 330CM. After placement in the Lft Main Dist the rotoblator was set f rom ~HIRPM~,000 rpm to 145,000 rpm and was passed 4 times through the lesion. A CATHETER, FR1.25 ROTA-LINK FR 1.25 was advanced through the XB 3.5 GUIDE CATHETER FR 7 over a WIRE, 12:26:36 ROTA-WIRE FLOPPY 330CM 330CM. After placement in the Lft Main Dist the rotoblator was set f rom ~HIRPM~,000 rpm to 145,000 rpm and was passed 1 times through the lesion. A CATHETER, FR1.25 ROTA-LINK FR 1.25 was advanced through the XB 3.5 GUIDE CATHETER FR 7 over a WIRE, 12:26:53 ROTA-WIRE FLOPPY 330CM 330CM. After placement in the Lft Main Dist the rotoblator was set f rom ~HIRPM~,000 rpm to 145,000 rpm and was passed 1 times through the lesion. A CATHETER, FR1.25 ROTA-LINK FR 1.25 was advanced through the XB 3.5 GUIDE CATHETER FR 7 over a WIRE, 12:27:19 ROTA-WIRE FLOPPY 330CM 330CM. After placement in the Lft Main Dist the rotoblator was set f rom ~HIRPM~,000 rpm to 145,000 rpm and was passed 4 times through the lesion. A CATHETER, FR1.25 ROTA-LINK FR 1.25 was advanced through the XB 3.5 GUIDE CATHETER FR 7 over a WIRE, 12:28:20 ROTA-WIRE FLOPPY 330CM 330CM. After placement in the Lft Main Dist the rotoblator was set f rom ~HIRPM~,000 rpm to 145,000 rpm and was passed 2 times through the lesion. 12:28:35 HR=70 bpm, VGJB=699/89 mmhg, SpO2=99.0 %, Resp=18 B/min A CATHETER, FR1.25 ROTA-LINK FR 1.25 was advanced through the XB 3.5 GUIDE CATHETER FR 7 over a WIRE, 12:28:44 ROTA-WIRE FLOPPY 330CM 330CM. After placement in the Lft Main Dist the rotoblator was set f rom ~HIRPM~,000 rpm to 145,000 rpm and was passed 1 times through the lesion. A CATHETER, FR1.25 ROTA-LINK FR 1.25 was advanced through the XB 3.5 GUIDE CATHETER FR 7 over a WIRE, 12:29:00 ROTA-WIRE FLOPPY 330CM 330CM. After placement in the Lft Main Dist the rotoblator was set f rom ~HIRPM~,000 rpm to 145,000 rpm and was passed 4 times through the lesion. A CATHETER, FR1.25 ROTA-LINK FR 1.25 was advanced through the XB 3.5 GUIDE CATHETER FR 7 over a WIRE, 12:30:04 ROTA-WIRE FLOPPY 330CM 330CM. After placement in the Lft Main Dist the rotoblator was set f rom ~HIRPM~,000 rpm to 145,000 rpm and was passed 2 times through the lesion. A CATHETER, FR1.25 ROTA-LINK FR 1.25 was advanced through the XB 3.5 GUIDE CATHETER FR 7 over a WIRE, 12:31:02 ROTA-WIRE FLOPPY 330CM 330CM. After placement in the Lft Main Dist the rotoblator was set f rom ~HIRPM~,000 rpm to 145,000 rpm and was passed 3 times through the lesion. A CATHETER, FR1.25 ROTA-LINK FR 1.25 was advanced through the XB 3.5 GUIDE CATHETER FR 7 over a WIRE, 12:32:08 ROTA-WIRE FLOPPY 330CM 330CM. After placement in the Lft Main Dist the rotoblator was set f rom ~HIRPM~,000 rpm to 145,000 rpm and was passed 4 times through the lesion. 12:33:32 HR=64 bpm, IBLZ=825/91 mmhg, TrR9=245.0 %, Resp=14 B/min 12:33:47 Ute removed 12:39:14 HR=67 bpm, FDDQ=007/94 mmhg, JbY4=553.0 %, Resp=16 B/min 12:39:51 ROTO Wire removed 12:39:57 A WIRE, BALANCE MIDDLEWEIGHT 190CM 190CM was inserted via Fem Art (right). A BALLOON, 2.5 X 15MM NC EUPHORA 15MM was inserted over WIRE, BALANCE MIDDLEWEIGHT 190CM 190CM via 12:43:11 the Fem Art (right). 12:43:38 HR=61 bpm, CSFX=026/103 mmhg, BxD8=865.0 %, Resp=9 B/min A BALLOON, 2.5 X 15MM NC EUPHORA 15MM over a WIRE, BALANCE MIDDLEWEIGHT 190CM 190CM in the Lft Main 12:44:02 Dist was inflated using a 30 MIO INDEFLATOR at 16 mio for 25 sec. A BALLOON, 2.5 X 15MM NC EUPHORA 15MM over a WIRE, BALANCE MIDDLEWEIGHT 190CM 190CM in the Lft Main 12:44:46 Dist was inflated using a 30 MIO INDEFLATOR at 20 mio for 25 sec. 12:47:38 Balloon Removed. A STENT, 2.5 15MM RAVEN 2.5 15MM was advanced through a XB 3.5 GUIDE CATHETER FR 7 over a WIRE, BALANCE 12:47:54 MIDDLEWEIGHT 190CM 190CM. 12:48:39 HR=64 bpm, EXIX=797/91 mmhg, MnN5=928.0 %, Resp=9 B/min A STENT, 2.5 15MM RAVEN 2.5 15MM was deployed using a 30 MIO INDEFLATOR at 12 atmospheres for 20 seconds in 12:49:18 the LAD Prox. 12:49:50 Re-inflated the stent balloon in the LAD Prox to 18 MIO for 20 seconds. 12:50:48 Delivery device removed A STENT, 3.0 22MM RAVEN 3.0 22MM was advanced through a XB 3.5 GUIDE CATHETER FR 7 over a WIRE, BALANCE 12:52:30 MIDDLEWEIGHT 190CM 190CM. 12:53:42 HR=53 bpm, IOTR=089/97 mmhg, YyM1=464.0 %, Resp=11 B/min 12:53:56 Stent not deployed. Stent removed and intact. A BALLOON, 3.0 X 15MM NC EUPHORA 15MM was inserted over WIRE, BALANCE MIDDLEWEIGHT 190CM 190CM via 12:55:17 the Fem Art (right). 12:55:41 Balloon Removed. 12:57:05 A WIRE, ASAHI PROWATER 180CM 180CM was inserted via Fem Art (right). 12:58:43 HR=52 bpm, WPBR=476/103 mmhg, KoS0=422.0 %, Resp=9 B/min A STENT, 3.0 22MM RAVEN 3.0 22MM was advanced through a XB 3.5 GUIDE CATHETER FR 7 over a WIRE, ASAHI 12:59:55 PROWATER 180CM 180CM. 13:01:12 BMW Wire removed A STENT, 3.0 22MM RAVEN 3.0 22MM was deployed using a 30 MIO INDEFLATOR at 20 atmospheres for 30 seconds in 13:02:06 the Lft Main Dist. 13:03:22 Delivery device removed 13:03:44 HR=57 bpm, FBRD=101/105 mmhg, XjU2=868.0 %, Resp=13 B/min A BALLOON, 3.5 X 20MM NC EUPHORA 20MM was inserted over WIRE, ASAHI PROWATER 180CM 180CM via th e Fem 13:05:33 Art (right). A BALLOON, 3.5 X 20MM NC EUPHORA 20MM over a WIRE, ASAHI PROWATER 180CM 180CM in the Lft Main D ist was 13:06:48 inflated using a 30 MIO INDEFLATOR at 12 mio for 10 sec. A BALLOON, 3.5 X 20MM NC EUPHORA 20MM over a WIRE, ASAHI PROWATER 180CM 180CM in the Lft Main D ist was 13:07:20 inflated using a 30 MIO INDEFLATOR at 12 mio for 15 sec. 13:08:11 Balloon Removed. 13:08:44 HR=62 bpm, ALPR=429/91 mmhg, KpG2=438.0 %, Resp=17 B/min 13:08:46 Wire removed 13:08:56 Temp Pacer Removed 13:08:58 Catheter was removed 13:09:35 Case End (Physician broke scrub) Assessment: Final Case, HR=58 BPM, YHRM=071/71 mmhg, Chest Pain=0, Edema=None, Color=Normal, Sk in = Warm, Dry Right Pulses: Rigoberto Ped=1, Femoral=2 13:11:36 Left Pulses: Rigoberto Ped=1, Femoral=2 Neurological: State=Alert, Ox3, GARCIA Respiration: Resp=8 B/min, SpO2=97 % 13:12:05 Catheter(s) removed without difficulty 13:12:10 In the Fem Art (right) the sheath was sutured in place by Dominic Gilmore. 13:12:12 In the Fem Art (right) the SHEATH, FR6 TERUMO (10CM) FR [address] by Cruz William, RT(R). In the Fem Art (right) the SHEATH, FR7.5 PRELUDE 11CM FR 7.5 11CM was sutured in place by Cruz Barnard, RT 13:12:21 (R). 13:12:29 Sterile dressing applied to site 13:12:30 No case complications noted. 13:12:32 Cine recording checked. 13:12:34 Bedside Report will be given. 13:12:37 Implantable Device card placed in patient's chart. 13:12:41 A Left Heart Cath was performed. 13:13:45 HR=61 bpm, OXVN=691/96 mmhg, TiB4=269.0 %, Resp=9 B/min 13:13:45 300 mg PLAVIX given in lab by Rudolph Azul, RN via Oral. Ordered by Dominic Gilmore. 13:19:18 STYR=134/96 mmhg 13:23:39 Vitals capture stopped. 13:24:38 Patient moved to [facility] End Study - Contrast Media Used In Study Contrast Total Opened (mL) Total Used (mL) Total Wasted (mL) Omnipaque 160 160 0 End Study - Maximum Contrast Load Max Contrast Load (mL) 358.7 End Study - Radiation Exposure Fluoro Time (minutes) 70.4 End Study - Patient Disposition Complications Transferred To Interventional Outcome No Telemetry Bed successful
--- NOTE | 2018-05-09 13:52 | MA ---
cc: Dominic Gilmore MD, Marcia MD DATE: 05/09/2018 PROCEDURE PERFORMED: Left coronary angiography, rotational atherectomy, balloon angioplasty and stenting of the proximal left anterior descending coronary artery and the left main coronary artery. Technically difficult complex procedure with multiple guidewires needed. DESCRIPTION OF PROCEDURE: The patient was brought to the cardiac catheterization lab in a fasting state. Using 1% lidocaine for local anesthesia, a 7.5-Dutch sheath was inserted in the right femoral artery and a 6-Dutch sheath in the right femoral vein. A 5-Dutch balloon-tipped pacemaker was then positioned in the right ventricle near the apex with backup pacing available. Next, I used a 7-Dutch XB 3.5 guiding catheter to engage the left main. I then tried to cross the left main lesion into the LAD. I tried a Rota Floppy wire. When this did work, I tried a ChoICE PT wire. Then, I tried a Whisper wire. Then, I tried a long BMW wire. I used a 1.25 mm Sprinter balloon for support. There was a sharp turn past the left main lesion. It was very difficult to get the wire to turn in the LAD. After 2 hours of trying, I was able to wire the LAD. I then exchanged to a Rota Floppy wire with the Sprinter balloon. Rotational atherectomy was then performed of the left main and proximal LAD with multiple passes required in order to get this area atherectomized. I was then able to dilate this with a 2.5 mm balloon. I then placed the first of 2 stents which was a 2.5 x 15 mm Adair stent placed in the proximal LAD before the major diagonal branch. This was deployed at 12 atmospheres and then high pressure on the proximal. I then tried to pass another stent, but it was hanging up. I put in a second wire, which was a Prowater wire. At this time, I was able to get the stent to cross. I used a 3.0 x 22 mm stent deployed at 20 atmospheres such that the proximal balloon was right at the ostium of the left main. I then postdilated the proximal LAD and the left main with a 3.5 mm noncompliant balloon. An outstanding angiographic result was achieved. This procedure was done under an Angiomax. She received an additional 300 mg clopidogrel load. The sheaths are to be pulled manually. There were no complications. FINDINGS: 1. Hemodynamics: Aortic pressure is 106/63 with a mean of 82. 2. Coronary angiography: Left main coronary artery had 99% distal stenosis. Circumflex artery is occluded at the ostium. The proximal LAD has 90% stenosis. There is a significant first diagonal branch, which was trapped after the proximal LAD lesion. The mid LAD has diffuse 90% disease. 3. Results of intervention: Following stenting of the left main, there is a 0% residual stenosis in the left main. Following stenting of the proximal LAD, there was a 0% residual stenosis in the LAD. There is NILA 3 flow now out to the major diagonal and multiple septal data entry associate branches. The mid LAD was not intervened upon but note, the patient has a patent left internal mammary graft to the distal LAD. CONCLUSIONS: Extremely difficult but successful complex rotational atherectomy and stenting of the left main and proximal LAD. PLAN: The patient will be continued on aspirin and Plavix for a minimum of 1 year. He will be admitted to the hospital overnight. Anticipate discharge tomorrow. Dominic Gilmore MD VEW/es , 01:18 PM , 01:29 PM
[2018-05-09] MEDS: Metoprolol Tartrate 25 MG Tablet PO SCH (20:06)
[2018-05-09 20:29] VITALS: RESP 18
[2018-05-10 06:45] LABS: Baso # (Auto) 0.1 th/mm3 (0.0-0.2); Baso % (Auto) 0.7 % (0.0-2.0); Eos # (Auto) 0.4 th/mm3 (0.0-0.4); Eos % (Auto) 4.6 % (0.0-4.0); Hematocrit 42.1 % (39.0-51.0); Hemoglobin 14.5 gm/dL (13.0-17.0); Lymph # (Auto) 1.2 th/mm3 (1.0-4.8); Lymph % (Auto) 14.8 % (9.0-44.0); Mean Corpuscular HGB Conc 34.5 % (32.0-36.0); Mean Corpuscular Hemoglobin 30.2 pg (27.0-34.0); Mean Corpuscular Volume 87.5 fL (80.0-100.0); Mean Platelet Volume 7.2 fL (7.0-11.0); Mono # (Auto) 0.7 th/mm3 (0.0-0.9); Mono % (Auto) 8.3 % (0.0-8.0); Neut # (Auto) 5.9 th/mm3 (1.8-7.7); Neut % (Auto) 71.6 % (16.0-70.0); Platelet Count 168 th/mm3 (150-450); Red Blood Count 4.81 mil/mm3 (4.50-5.90); Red Cell Distribution Width 12.5 % (11.6-17.2); White Blood Count 8.2 th/mm3 (4.0-11.0)
[2018-05-10 07:06] LABS: Calcium 8.1 mg/dL (8.5-10.1); Carbon Dioxide 24.3 meq/L (21.0-32.0); Potassium 3.8 meq/L (3.5-5.1)
[2018-05-10 07:22] LABS: Creatine Kinase MB 44.6 ng/mL (0.5-3.6)
[2018-05-10 07:25] LABS: CKMB Percent 9.5 % (0.0-4.0)
[2018-05-10] MEDS: Metoprolol Tartrate 25 MG Tablet PO SCH (09:27)
--- NOTE | 2018-05-10 10:12 | P.PNCA ---
Subjective Interval history: No angina feels fine Physical Exam Vital signs: Vital Signs 05/09/18 13:26 05/09/18 13:40 05/09/18 14:00 Temperature Pulse Rate 60 58 L 64 Respiratory Rate 20 20 20 Blood Pressure 166/80 H 168/88 H 160/93 H Pulse Oximetry 99 99 99 05/09/18 14:30 05/09/18 15:22 05/09/18 15:30 Temperature Pulse Rate 64 71 73 Respiratory Rate 20 20 Blood Pressure 165/89 H 161/83 H Pulse Oximetry 99 99 05/09/18 15:41 05/09/18 20:00 05/09/18 21:00 Temperature 98.2 F Pulse Rate 65 80 72 Respiratory Rate 20 18 Blood Pressure 160/83 H 148/94 H Pulse Oximetry 99 98 05/09/18 22:00 05/09/18 23:00 05/10/18 00:00 Temperature 98.3 F Pulse Rate 72 68 70 Respiratory Rate 18 Blood Pressure 129/86 Pulse Oximetry 98 05/10/18 00:31 05/10/18 01:00 05/10/18 02:00 Temperature Pulse Rate 65 70 62 Respiratory Rate Blood Pressure Pulse Oximetry 05/10/18 03:00 05/10/18 04:00 05/10/18 04:16 Temperature 98.1 F Pulse Rate 60 74 61 Respiratory Rate 18 Blood Pressure 141/86 H Pulse Oximetry 96 05/10/18 05:00 05/10/18 08:00 Temperature Pulse Rate 68 84 Respiratory Rate Blood Pressure Pulse Oximetry Intake & Output 05/09/18 05/10/18 05/10/18 18:59 06:59 18:59 Intake Total 720 / 720 240 / 240 Output Total 700 / 700 650 / 650 Balance -410 / -410 Weight 86.1 kg 86.1 kg Intake: Oral 720 / 720 240 / 240 Output: Urine 700 / 700 650 / 650 Other: Weight On Admission 86.1 kg - Constitutional no acute distress - Routine HEENT Exam Head: Present: normocephalic, atraumatic - Routine Neck Exam Absent: JVD - Routine Respiratory Exam Present: CTA bilaterally. Absent: accessory muscle use - Routine Cardiovascular Exam Present: RRR, S1, S2. Absent: gallop - Routine Abdominal Exam Present: soft. Absent: tenderness - Routine Extremities Exam Absent: cyanosis, clubbing, edema Assessment and Plan - Assessment (1) Coronary artery disease Code(s): I25.10 - Atherosclerotic heart disease of [place] coronary artery without angina pectoris Status: Acute (2) Hyperlipidemia Code(s): E78.5 - Hyperlipidemia, unspecified Status: Acute (3) Stented coronary artery Code(s): Z95.5 - Presence of coronary angioplasty implant and graft Status: Acute - Plan DC home - same meds
[2018-05-10 10:44] VITALS: BP 139/87; PULSE 72; TEMP 98.2; O2SAT 98
[2018-05-10] MEDS ORDERED: Iohexol 350 MG/ML 100 ML Vial (for Cath Lab) IVCONTRAST ONE (11:26)
--- NOTE | 2018-05-10 16:18 | ECG ---
Date Performed: 05/10/2018 Time Performed: 05:00:44 PTAGE: 62 years EKG: Sinus rhythm with PVC(s) with borderline 1st degree A-V block Since the previous tracing, no significant change n oted Borderline ECG NO PREVIOUS TRACING DOCTOR: Danilo Brown Interpretating Date/Time 05/10/2018 16:15:35
== END 2018-05-10 11:27 | disposition home or self-care (01) ==
LOC: HCAT 08:21 → HCIS 08:21 → HDIC 08:25 → HCIS 13:28
PROVIDERS: ADMIT Internal Medicine Cardiovascular Disease; ATTEND Internal Medicine Cardiovascular Disease